=== PATIENT | female | born 1935 | race Caucasian/White ===

== ENCOUNTER 2020-08-25 13:30 | Inpatient (IN) | payer MEDICARE, SELFPAY ==
[2020-08-25 13:31] VITALS: BP 123/54; PULSE 78; RESP 20; TEMP 37.2; O2SAT 95; BMI 23.3
[2020-08-25 13:35] VITALS: BP 123/54; PULSE 78; RESP 20; TEMP 37.2; O2SAT 95
--- NOTE | 2020-08-25 14:27 | EKG12_ITS ---
Test Reason : GENERAL ILLNESS Blood Pressure : / mmHG Vent. Rate : 077 BPM Atrial Rate : 077 BPM P-R Int : 230 ms QRS Dur : 086 ms QT Int : 392 ms P-R-T Axes : 061 015 048 degrees QTc Int : 443 ms Sinus rhythm with 1st degree A-V block Septal infarct , age undetermined Abnormal ECG Confirmed by LEÓN LAWSON, MAGALIE ([id number]), film editor supervisor DIANE WINN ([id number]) on 08/26/2020 11:49:53 AM Referred By: URI Confirmed By:MAGALIE TRAORE MD
--- NOTE | 2020-08-25 14:28 | EDS_ITS ---
HPI History of Present Illness Chief Complaint: General Illness Informant: patient and family Narrative Narrative: Patient presents with generalized weakness. Her family has been urging her to come in for the last 1 to 2 months. Over the last 2 months she has lost the ability to ambulate. She states she is just too weak to get up and walk. There is no specific complaint other than a vaginal area mass. She does not have coughing or trouble breathing. Nothing is made her symptoms better or worse. She denies black or bloody stools. She came in today because she is just too weak to function at home at this point. Caring for her is gotten difficult. She has chronic stool and urine incontinence. Patient does complain of a vaginal area mass for the last 2 or 3 months. Occasionally it will have a small amount of bleeding but nothing significant. It does not really hurt. It just seems to be getting larger and larger. She has not had this evaluated. This is progressively worse. Nothing improves it. PFSH PFS Medical History (Updated 08/25/20 @ 16:[address] Joseph Ma MD) COPD (chronic obstructive pulmonary disease) Former tobacco use GERD (gastroesophageal reflux disease) HLD (hyperlipidemia) Hypertension Home Medications amlodipine 10 mg PO DAILY 06/24/15 [History Last Taken 06/24/15 09:00] esomeprazole magnesium [Nexium] 40 mg PO DAILY PRN PRN 06/24/15 [History Last Taken Unknown] labetalol 300 mg PO BID 06/24/15 [History Last Taken 06/24/15 09:00] Allergy/AdvReac Type Severity Reaction Status Date / Time atorvastatin calcium AdvReac aching Verified 08/25/20 13:36 [From Lipitor] erythromycin lactobionate AdvReac Nausea Verified 08/25/20 13:36 [From Erythrocin] rosuvastatin calcium AdvReac aching Verified 08/25/20 13:36 [From Crestor] Surgical History (Updated 08/25/20 @ 16:[address] Saritha Albrecht MD) S/P cholecystectomy S/P tonsillectomy and adenoidectomy Social History (Updated 08/25/20 @ 16:[address] Saritha Albrecht MD) household members: family Smoking Status: Former smoker how long ago did patient quit smoking: Patient quit 40 years ago, 1/2 ppd since teenager until quit. alcohol intake: never substance use type: does not use ROS ROS ED Constitutional Constitutional ED: Reports weight loss; Denies chills or fever(s) Eyes Eyes: Denies change in vision ENT ENT ED: Denies rhinorrhea or sore throat Cardiovascular Cardiovascular: Denies chest pain or palpitations Respiratory/Chest Respiratory/Chest: Denies cough, dyspnea or sputum Gastrointestinal Gastrointestinal: Denies abdominal pain, melena, nausea or vomiting Genitourinary Genitourinary ED: Reports dysuria, urinary frequency and other Details: Vaginal area mass slowly enlarging over the last 2 or 3 months. ; Denies hematuria Musculoskeletal Musculoskeletal: Denies back pain or myalgias Integumentary Reports other Details: Mass in vaginal area. ; Denies rash Neurologic Neurologic: Denies headache(s) Psychiatric Psychiatric: Denies anxiety or depression Endocrine Endocrinology: Denies polydipsia or polyuria EXAM Physical Exam Const Vital Signs: 08/25/20 13:31 08/25/20 13:35 08/25/20 13:38 Temperature 99.0 F 99.0 F Temperature Source Temporal Temporal Pulse Rate 78 78 Respiratory Rate 20 H 20 H Respiratory Effort Normal Non-Labored Blood Pressure 123/54 H 123/54 H Blood Pressure Mean 77 77 Pulse Ox 95 95 Oxygen Delivery Method Room Air Room Air Positive cachectic; Negative for unkempt General Appearance ED: cachectic and pallor; Negative for unkempt or diaphoretic Nutritional Appearance: cachectic HEENT Reports moist mucous membranes Negative for trauma or tenderness Eyes EOMs intact bilaterally General Eye ED: Yes other; Negative for pale conjunctiva Neck supple Chest Wall inspection of chest normal Resp normal respiratory effort and clear to auscultation bilaterally Cardio regular rate, regular rhythm and no murmurs GI normal to inspection, nondistended, normoactive bowel sounds and non-tender Palpation: soft Narrative: And has vulvar area mass. This is raw and slightly weeping. There is no significant local cellulitis. This does not appear to be an abscess. This is firm and somewhat hard. Back/Spine no CVA tenderness Extremity normal to inspection Neuro oriented x3 Sensorium / Orientation: alert Psych mental status grossly normal Appearance: Negative for unkempt Skin no rashes or lesions noted General Skin Exam: pallor MDM MDM MDM Narrative Medical decision making narrative: Patient's results show a very slight elevation of white count. Mild anemia. Mildly low sodium. Renal function is normal. LFTs show no marked abnormalities. CT scan is concerning for cancer with adenopathy. Case was discussed with Dr. Saritha Albrecht. She is contacting urology also. Patient will be admitted. She has significant generalized weakne ss that prevents her from functioning at home. She is not able to bear weight. She cannot care for herself. It is getting hard for the family to care for herself. Lab Data Attestation: I reviewed the patient's lab results. Labs: Laboratory Results - last 24 hr 08/25/20 08/25/20 13:40 13:40 WBC 13.0 H RBC 3.43 L Hgb 9.4 L Hct 29.8 L MCV 86.9 MCH 27.4 MCHC 31.5 L RDW Std Deviation 42.8 RDW Coeff of Trey 13.4 Plt Count 318 MPV 8.4 Immature Gran % (Auto) 0.600 Neut % (Auto) 89.9 H Lymph % (Auto) 3.[address] [place] % (Auto) 4.0 Eos % (Auto) 1.5 Baso % (Auto) 0.5 Absolute Neuts (auto) 11.7 H Absolute Lymphs (auto) 0.46 L Nucleated RBC % 0 Platelet Estimate ADEQUATE Hypochromasia 2+ Sodium 132 L Potassium 3.9 Chloride 99 Carbon Dioxide 29.0 Anion Gap 4 L BUN 14 Creatinine 0.98 Estim Creat Clear Calc 38.45 Est GFR (MDRD) Af Amer 70 Est GFR (MDRD) Non-Af 58 L BUN/Creatinine Ratio 14.3 Glucose 98 Calcium 9.7 Total Bilirubin 0.70 AST 10 L ALT 8 L Alkaline Phosphatase 90 Total Protein 4.9 L Albumin 1.9 L Globulin 3.0 Albumin/Globulin Ratio 0.6 L Radiography Diagnostic Testing: Radiology Impression Abdomen/Pelvis CT 08/25/20 14:32 IMPRESSION: A fungoid vulvar mass with evidence of necrotic metastatic adenopathy in the left pelvic sidewall and inguinal region. Rounded cystic lesion in the mesentery on the right side of the abdomen, likely a mesenteric cyst; however, a necrotic adenopathy cannot be entirely excluded though felt to be much less likely. Small bilateral layering pleural effusions. Electronically Signed: Vinod Marquez MD at 15:33 EDT Tel , Service support , Reviewed results Discharge Plan Dx/Rx/DC Orders Clinical Impression: Vulvar mass, Adult failure to thrive, Anemia Disposition Disposition: Acute Care [facility]
--- NOTE | 2020-08-25 14:32 | CT_ITS ---
STUDY: CT ABDOMEN AND PELVIS WITH CONTRAST REASON FOR EXAM: Female, 84 years old. Vulvar mass and generalized weakness RADIATION DOSAGE (If Supplied By Facility): CTDIvol = ( 7.33 ) mGy, DLP = ( 404.60 ) mGycm TECHNIQUE: Transaxial images were obtained from the dome of the diaphragm to the symphysis pubis without oral contrast. IV 100mL Isovue-370 was administered. Sagittal and coronal images were reconstructed. Individualized dose optimization techniques were used for this CT. COMPARISON: CT scan of the chest dated 07/19/2014 FINDINGS: Small layering pleural effusions bilaterally. Subsegmental compressive atelectasis in the bilateral lower lobes. Unremarkable liver, spleen, pancreas, and adrenals. Status post cholecystectomy with associated mild biliary dilatation. Bilateral renal cortical thinning. Small cortical hypodensities in the bilateral kidneys, likely simple cysts. Approximately 2.1 cm cystic/hypodense lesion in the right mid abdomen, image #58 axial series. Normal appendix. Bowel loops nonobstructed. Sections through the pelvis demonstrate no adnexal mass. Urinary bladder grossly unremarkable. Necrotic enlarged lymph nodes are seen along the left pelvic sidewall measuring up to 3.4 x 1.5 cm on image #74 axial series and in the left inguinal region measuring 5.3 x 4.1 cm image #91. A fungoid markedly heterogeneous and infiltrative vulvar mass is noted measuring up to 9.5 x 7 cm in axial plane. No lytic or sclerotic lesion in the regional skeleton. Multilevel lumbar spondylosis and dextroscoliosis. CT/Abdomen/Pelvis W IV Cont ONLY IMPRESSION: A fungoid vulvar mass with evidence of necrotic metastatic adenopathy in the left pelvic sidewall and inguinal region. Rounded cystic lesion in the mesentery on the right side of the abdomen, likely a mesenteric cyst; however, a necrotic adenopathy cannot be entirely excluded though felt to be much less likely. Small bilateral layering pleural effusions. Electronically Signed: Vinod Marquez MD at 15:33 EDT Tel , Service support ,
[2020-08-25 14:44] LABS: Absolute Lymphocyte Count 0.46 X10^3/uL (0.83-4.51); Absolute Neutrophil Count 11.7 X10^3/uL (2.0-7.7); Basophil# 0.07 X10^3/uL; Basophil% 0.5 % (0-1); Eosinophil# 0.19 X10^3/uL; Eosinophils% 1.5 % (0-5); Hematocrit 29.8 % (37-47); Hemoglobin 9.4 g/dL (12.0-15.0); Lymphocyte # 0.46 X10^3/ul (0.83-4.51); Lymphocyte % 3.5 % (19-41); Mean Corp Hgb Conc 31.5 g/dL (32-36); Mean Corpuscular Hgb 27.4 pg (27.0-32.0); Mean Corpuscular Volume 86.9 fL (81-99); Mean Platelet Vol. 8.4 fl (6.2-12.0); Monocyte# 0.52 X10^3/uL; NRBC Flagged by Analyzer 0 % (0-5); Neutrophil # 11.71 X10^3/uL (2.7-7.7); Neutrophil % 89.9 % (47-70); POSITIVE DIFFERENTIAL YES; Platelet Count 318 K/mm3 (150-450); RBC Distribution Width CV 13.4 % (11.6-14.6); RBC Distribution Width SD 42.8 fl (35.1-43.9); Red Blood Count 3.43 M/mm3 (4.2-5.4)
[2020-08-25 14:45] LABS: Differential Indicated SCAN CRITERIA MET
[2020-08-25 14:54] LABS: ALB/GLOB Ratio 0.6 RATIO (0.9-2.4); AST(SGOT) 10 U/L (15-37); Alanine Aminotransfer ALT/SGPT 8 U/L (13-56); Albumin, Serum 1.9 g/dL (3.2-5.0); Alkaline Phosphatase 90 U/L (45-117); Anion Gap 4 (5-15); BUN 14 mg/dL (7-18); BUN/Creat Ratio 14.3 RATIO (10-20); Calcium,Total 9.7 mg/dL (8.5-10.1); Chloride 99 mmol/L (98-107); Creatinine, Serum 0.98 mg/dL (0.55-1.02); EST Glomerular Filtration Rate 58 mL/min (>60); Est Glom Filt Rate - Afr Amer 70 mL/min (>60); Estimated Creatinine Clearance 38.45 ml/min; Glucose 98 mg/dL (74-106); Potassium 3.9 mmol/L (3.5-5.1); Protein, Total 4.9 g/dL (6.4-8.2); Sodium Level 132 mmol/L (136-145)
[2020-08-25 15:03] LABS: Hypochromasia 2+; Platelet Estimate ADEQUATE (ADEQ)
--- NOTE | 2020-08-25 15:57 | PCM.HP.STD ---
HPI - General General Date of Service: 08/25/20 Chief Complaint: Debility, Weakness, Vulvar mass HPI Narrative The patient is an 84 y/o F w/ PMHx: HTN, HLD, GERD, Chronic COPD w/ Former Tobacco use, Chronic anemia who presents to the [facility] ED on 08/25/20, currently residing with her daughter with history of significant functional decline over the last couple weeks with frequent falls, inability to care for self with reported foul-smelling reported wounds in the groin and vaginal region frequently refusing to be evaluated prompting daughter to bring patient to the ED for evaluation. Patient reports that the vulvar region mass has been growing for at least the last 6 months and she reports some burning with urination but still has the ability to urinate. She denies any abdominal pain despite the CT findings. Daughter notes that patient has been incontinent of both urine and feces. Patient has been very resistant to coming in and has not sought out any evaluation for her mass. Work-up in the ED included T 99, heart rate 78, BP 123/54, respiratory rate 20, 95% room air, CBC with WBC 13, hemoglobin 9.4, platelets 318 with left shift and lymphopenia, CMP with sodium 132, BUN/creatinine 14/0.98, AST/ALT 10/8, otherwise not marked appearing hepatic profile, CT abdomen and pelvis with a fungoid vulvar mass with evidence of necrotic metastatic adenopathy in the left pelvic sidewall and inguinal region with a rounded cystic lesion in the mesentery in the right side of the abdomen possibly mesenteric cyst however necrotic adenopathy cannot be entirely excluded although less likely, small bilateral pleural effusions. Of note on exam patient with no significant abdominal pain including right lower quadrant. Urinalysis requested per ED physician but is pending upon evaluation. [facility] Medical History (Updated 08/25/20 @ 16:[address] Joseph Ma MD) COPD (chronic obstructive pulmonary disease) Former tobacco use GERD (gastroesophageal reflux disease) HLD (hyperlipidemia) Hypertension Home Medications amlodipine 10 mg PO DAILY 06/24/15 [History Last Taken 06/24/15 09:00] esomeprazole magnesium [Nexium] 40 mg PO DAILY PRN PRN 06/24/15 [History Last Taken Unknown] labetalol 300 mg PO BID 06/24/15 [History Last Taken 06/24/15 09:00] Allergy/AdvReac Type Severity Reaction Status Date / Time atorvastatin calcium AdvReac aching Verified 08/25/20 13:36 [From Lipitor] erythromycin lactobionate AdvReac Nausea Verified 08/25/20 13:36 [From Erythrocin] rosuvastatin calcium AdvReac aching Verified 08/25/20 13:36 [From Crestor] Surgical History (Updated 08/25/20 @ 16:[address] Saritha Albrecht MD) S/P cholecystectomy S/P tonsillectomy and adenoidectomy Social History (Updated 08/25/20 @ 16:[address] Saritha Albrecht MD) household members: family Smoking Status: Former smoker how long ago did patient quit smoking: Patient quit 40 years ago, 1/2 ppd since teenager until quit. alcohol intake: never substance use type: does not use ROS ROS Narrative Admission Review of Systems: CONSTITUTIONAL: No weight loss, fever, chills, + weakness or fatigue. HEENT: Eyes: No visual loss, blurred vision, double vision or yellow sclerae. Ears, Nose, Throat: No hearing loss, sneezing, congestion, runny nose or sore throat. SKIN: No rash or itching, lesions, wounds. CARDIOVASCULAR: No chest pain, chest pressure or chest discomfort, palpitations, edema, orthopnea, syncopal events. RESPIRATORY: No shortness of breath, cough or sputum, wheezing, hemoptysis. GASTROINTESTINAL: No anorexia, nausea, vomiting or diarrhea, abdominal pain, melena, BRBPR. GENITOURINARY: + Dysuria, vulvar fungating mass, incontinence. NEUROLOGICAL: No headache, dizziness, syncope, paralysis, ataxia, numbness or tingling in the extremities, focal weakness, change in bowel or bladder control, seizure. MUSCULOSKELETAL: + muscle, back pain, joint pain or stiffness. HEMATOLOGIC: No anemia, bleeding or bruising. LYMPHATICS: No enlarged nodes. No history of splenectomy. PSYCHIATRIC: No history of depression or anxiety. ENDOCRINOLOGIC: No reports of sweating, cold or heat intolerance. No polyuria or polydipsia. ALLERGIES: + history of asthma, hives, eczema or rhinitis. Vital Signs Vital Signs Vital Signs: 08/25/20 13:31 08/25/20 13:35 08/25/20 13:38 Temperature 99.0 F 99.0 F Temperature Source Temporal Temporal Pulse Rate 78 78 Respiratory Rate 20 H 20 H Respiratory Effort Normal Non-Labored Blood Pressure 123/54 H 123/54 H Blood Pressure Mean 77 77 Pulse Ox 95 95 Oxygen Delivery Method Room Air Room Air Weight Weight: 140 lb Body Mass Index (BMI) 23.3 Physical Exam Narrative Physical Examination: General: Awake, alert, oriented x 3 and cooperative, seated upright in the ED bed in no apparent distress. Skin: Normal color, normal turgor, no icterus, no cyanosis except significant vulvar fungating foul-smelling mass. HEENT: AT/NC, EOMI, PERRLA, mildly dry MM, no carotid bruits or JVD noted. Lungs: Mildly diminished bases, moderate effort, no notable rales, ronchi or wheezing. Heart: Regular rate and rhythm; no gallop, rub audible. Abdomen: Soft, NTTP including right lower quadrant given CT findings, ND, distant normal BS, no HSM. : Significant beefy red fungating mass, Extremities: No cyanosis, clubbing, or edema. Neurological: Patient awake, alert, oriented as noted, cognitive function intact; pupils equally reactive to light and accommodation, cranial nerves II-XII grossly normal, moving all 4 extremities, no focal deficits, strength moderately to severely globally decreased. Psychiatric: Affect appears fatigued otherwise normal, no acute evidence of depressive or anxiety feelings. Results Lab / Micro Data Result Diagrams: 08/25/20 13:40 08/25/20 13:40 Labs: Laboratory Results - last 24 hr 08/25/20 13:40: WBC 13.0 H, RBC 3.43 L, Hgb 9.4 L, Hct 29.8 L, MCV 86.9, MCH 27.4, MCHC 31.5 L, RDW Std Deviation 42.8, RDW Coeff of Trey 13.4, Plt Count 318, MPV 8.4, Immature Gran % (Auto) 0.600, Neut % (Auto) 89.9 H, Lymph % (Auto) 3.5 L, [place] % (Auto) 4.0, Eos % (Auto) 1.5, Baso % (Auto) 0.5, Absolute Neuts (auto) 11.7 H, Absolute Lymphs (auto) 0.46 L, Nucleated RBC % 0, Platelet Estimate ADEQUATE, Hypochromasia 2+ 08/25/20 13:40: Sodium 132 L, Potassium 3.9, Chloride 99, Carbon Dioxide 29.0, Anion Gap 4 L, BUN 14, Creatinine 0.98, Estim Creat Clear Calc 38.45, Est GFR (MDRD) Af Amer 70, Est GFR (MDRD) Non-Af 58 L, BUN/Creatinine Ratio 14.3, Glucose 98, Calcium 9.7, Total Bilirubin 0.70, AST 10 L, ALT 8 L, Alkaline Phosphatase 90, Total Protein 4.9 L, Albumin 1.9 L, Globulin 3.0, Albumin/Globulin Ratio 0.6 L Radiology Impression Abdomen/Pelvis CT 08/25/20 14:32 IMPRESSION: A fungoid vulvar mass with evidence of necrotic metastatic adenopathy in the left pelvic sidewall and inguinal region. Rounded cystic lesion in the mesentery on the right side of the abdomen, likely a mesenteric cyst; however, a necrotic adenopathy cannot be entirely excluded though felt to be much less likely. Small bilateral layering pleural effusions. Electronically Signed: Vinod Mraquez MD at 15:33 EDT Tel , Service support , Assessment & Plan Assessment/Plan (1) Vulvar mass: (2) Adult failure to thrive: PLAN: The patient is an 84 y/o F w/ PMHx: HTN, HLD, GERD, Chronic COPD w/ Former Tobacco use, Chronic anemia who presents to the [facility] ED on 08/25/20, currently residing with her daughter with history of significant functional decline over the last couple weeks with frequent falls, inability to care for self with reported foul-smelling reported wounds in the groin and vaginal region frequently refusing to be evaluated prompting daughter to bring patient to the ED for evaluation. 1. 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 Will admit to DC, maintain on fall precautions, awaiting UA and would initiate abx therapy if appropriate, discussed case with poultry hatchery supervisor Dr. Nathan who will evaluate patient in AM and perform Bx, PT, OT, CM consultations for discharge planning. 2. Chronic COPD: Not on routine inhalers, former tobacco use, PRN albuterol, encourage HOB, IS. 3. Chronic normocytic anemia: Admission hemoglobin 9.4, previously noted 10-11, MCV 86.9, not on any chronic supplementation, iron panel, ferritin, vitamin B12 pending. 4. Hypertension: Continue home regimen including labetalol, amlodipine with hold parameters, PRN hydralazine. 5. Hyperlipidemia: Not on regimen, noted statin allergy, defer to outpatient. 6. Former tobacco use: Encourage continued tobacco cessation. 7. GERD: We will maintain on PPI. 8. DVT prophylaxis: SCDs, lovenox (cleared to continue chemoprophylaxis per gynecology given biopsy planned). 9. CODE status: Patient does not have healthcare care power of managing attorney nor living will set up. Encouraged discussion of this with her family and assistance with case management/social work if interested. Discussed CODE status at length including difference between FULL code, DNR-CCA and DNR-CC status. Following discussions about the differences in these status, requested DNR-CCA, no intubation status. Code status form filled out and placed on chart. Advanced Care Planning Face to Face Time: 16 minutes. Charges/Coding Visit Charges Inpatient E&M: 00987 Init Hosp L2 Procedures Hospitalists Procedures: 44197 Advncd Care Plan 30 Min
--- NOTE | 2020-08-25 16:22 | NURSING ---
309 DR BARILLAS GENERALIZED WEAKNESS, NEW CANCER
[2020-08-25 16:34] LABS: Magnesium 1.4 mg/dL (1.6-2.6); Phosphorus 2.1 mg/dL (2.5-4.9)
[2020-08-25 16:51] VITALS: BMI 20.7
[2020-08-25 17:05] VITALS: BP 112/55; PULSE 77; RESP 16; TEMP 36.7; O2SAT 96
[2020-08-25] MEDS: 0.9% Normal Saline 1,000 ML 100 ML IV (17:42)
[2020-08-25] MEDS: 0.9% Saline Lock 10 ML Syringe IV (17:43)
[2020-08-25 17:57] LABS: Procalcitonin 0.13 ng/mL (0.00-0.09)
[2020-08-25] MEDS: amLODIPine 10 MG Tablet PO (18:41)
[2020-08-25 22:05] VITALS: BP 95/41; PULSE 95; RESP 16; TEMP 36.5; O2SAT 95
--- NOTE | 2020-08-26 | IMM_PTH ---
PATIENT: TORSTEN SAEZ LOC: MS3 U#:[id number] AGE/SX: 84/F [place] [facility] [place]: Dr. Monica Gerardo MD : [id number] BED: 1 DIS: 08/27/2020 SPEC #: [id number] RECD: 08/27/20 12:49 STATUS: BRITTNI REQ #: [id number] TYRA: 08/26/20 00:[address]: Conchita Ibarra DEPT: IMMUNOHISTOCHEMISTRY RECD BY: Claudia Franco ENTERED: 08/27/20 12:50 SP TYPE: IMMUNO OTHR DR: MD Dr. Saritha Dueñas MD Dr. Patrick Furness, MD Tissues: Vulva, NOS Procedures: p16 (initial) PHYSICIAN & INSTITUTION [place] [id number] SPECIMEN INFORMATION: Tissue Source: Vulvar mass, punch biopsy Clinical Info: Vulvar mass Specimen Number: [id number] CPT code: 45286 METHODOLOGY: Deparaffinized sections of prefer/formalin-fixed tissue or PAP/DQ stained slides are incubated with monoclonal/polyclonal antibodies/oligonucleotide probes. Localization is made via biotin free immunoperoxidase method. Appropriate controls are performed and reacted as expected. Results on target cell population are indicated in the following table: RESULTS: ANTIBODY / CLONE RESULT P16 (E6H4) negative These tests were developed and their performance characteristics determined by [facility]. They may not have been cleared or approved by the U.S. Food and Drug Administration. The FDA has determined that such clearance or approval is not necessary. The above immunohistochemical/dualISH markers are ordered and reviewed by the Pathologist. 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 SJ:jimi 08/28/2020
[2020-08-26] MEDS: 0.9% Normal Saline 1,000 ML 100 ML IV ×3 (04:00→21:01)
[2020-08-26 04:05] VITALS: BP 107/42; PULSE 84; RESP 16; TEMP 37.5; O2SAT 93
[2020-08-26 05:36] LABS: Absolute Lymphocyte Count 0.66 X10^3/uL (0.83-4.51); Absolute Neutrophil Count 10.3 X10^3/uL (2.0-7.7); Basophil# 0.05 X10^3/uL; Basophil% 0.4 % (0-1); Eosinophil# 0.41 X10^3/uL; Eosinophils% 3.4 % (0-5); Hematocrit 27.1 % (37-47); Hemoglobin 8.6 g/dL (12.0-15.0); Lymphocyte # 0.66 X10^3/ul (0.83-4.51); Lymphocyte % 5.5 % (19-41); Mean Corp Hgb Conc 31.7 g/dL (32-36); Mean Corpuscular Hgb 27.7 pg (27.0-32.0); Mean Corpuscular Volume 87.4 fL (81-99); Mean Platelet Vol. 8.3 fl (6.2-12.0); Monocyte# 0.49 X10^3/uL; Monocyte% 4.1 % (0-10); NRBC Flagged by Analyzer 0 % (0-5); Neutrophil # 10.26 X10^3/uL (2.7-7.7); Neutrophil % 86.2 % (47-70); Platelet Count 304 K/mm3 (150-450); RBC Distribution Width CV 13.6 % (11.6-14.6); RBC Distribution Width SD 43.2 fl (35.1-43.9); White Blood Count 11.9 K/mm3 (4.4-11.0)
[2020-08-26 06:10] LABS: ALB/GLOB Ratio 0.6 RATIO (0.9-2.4); AST(SGOT) 11 U/L (15-37); Alanine Aminotransfer ALT/SGPT 9 U/L (13-56); Albumin, Serum 1.7 g/dL (3.2-5.0); Alkaline Phosphatase 87 U/L (45-117); Anion Gap 5 (5-15); BUN 14 mg/dL (7-18); BUN/Creat Ratio 14.8 RATIO (10-20); Calcium,Total 9.7 mg/dL (8.5-10.1); Chloride 103 mmol/L (98-107); Creatinine, Serum 0.94 mg/dL (0.55-1.02); EST Glomerular Filtration Rate 60 mL/min (>60); Est Glom Filt Rate - Afr Amer 73 mL/min (>60); Estimated Creatinine Clearance 38.47 ml/min; Ferritin 115 ng/mL (8-252); Globulin 2.9 g/dL (2.2-4.2); Glucose 86 mg/dL (74-106); Iron 21 ug/dL (50-170); Iron Binding Capacity,Total 184 ug/dL (250-450); PERCENT IRON SATURATION 11.4 % (15.0-55.0); Protein, Total 4.6 g/dL (6.4-8.2); Sodium Level 134 mmol/L (136-145)
[2020-08-26 07:22] VITALS: O2SAT 96
[2020-08-26 07:50] LABS: Vitamin B12 262 pg/mL (211-911)
--- NOTE | 2020-08-26 08:48 | NURSING ---
THIS NURSE ENTERED ROOM D/T CALL LIGHT BLINKING. WHEN ENTERED, DAUGHTER HAD BEEN STANDING BY BEDSIDE ASSISTING HER MOM W/HER FOOD, SOON THIS NURSE ENTERED, DAUGHTER SAT DOWN, OH HERE THEY ARE, SHES HAVING TROUBLE GETTING HER EGGS ON HER FORK. THIS NURSE SIMPLY PUT A CHUCKS ON PTS CHEST AND TOLD HER TO DO HER BEST. TOLD PT THAT SHE CURRENTLY HAD NO MEDS DUE, I HAD OTHER PTS TO ASSIST, ENJOY HER BREAKFAST AND I WOULD RETURN TO GET VS AND ASSESS HER.
--- NOTE | 2020-08-26 10:20 | PN.HOSP_ITS ---
Subjective Subjective Patient was seen and examined. Denied any pain. No acute events overnight. Discussed with - patient will need to be transferred to [facility] for gynecology evaluation OWEN Objective Data Objective Data Vital Signs: Vital Signs Temp Pulse Resp BP Pulse Ox 99.5 F H 84 16 107/42 L 93 08/26/20 04:05 08/26/20 04:05 08/26/20 04:05 08/26/20 04:05 08/26/20 04:05 Oxygen Delivery Method Room Air Weight: 56.8 kg Body Mass Index (BMI) 20.7 Intake & Output: Intake and Output for Last 24 Hours 08/24/20 08/25/20 08/26/20 23:59 23:59 23:59 Intake Total 120 / 120 1000 / 1000 Balance 120 / 120 1000 / 1000 Lab / Micro Data Result Diagrams: 08/26/20 05:16 08/26/20 05:16 Labs: Laboratory Results - last 24 hr 08/25/20 13:40: WBC 13.0 H, RBC 3.43 L, Hgb 9.4 L, Hct 29.8 L, MCV 86.9, MCH 27.4, MCHC 31.5 L, RDW Std Deviation 42.8, RDW Coeff of Trey 13.4, Plt Count 318, MPV 8.4, Immature Gran % (Auto) 0.600, Neut % (Auto) 89.9 H, Lymph % (Auto) 3.5 L, [place] % (Auto) 4.0, Eos % (Auto) 1.5, Baso % (Auto) 0.5, Absolute Neuts (auto) 11.7 H, Absolute Lymphs (auto) 0.46 L, Nucleated RBC % 0, Platelet Estimate A DEQUATE, Hypochromasia 2+ 08/25/20 13:40: Sodium 132 L, Potassium 3.9, Chloride 99, Carbon Dioxide 29.0, Anion Gap 4 L, BUN 14, Creatinine 0.98, Estim Creat Clear Calc 38.45, Est GFR (MDRD) Af Amer 70, Est GFR (MDRD) Non-Af 58 L, BUN/Creatinine Ratio 14.3, Glucose 98, Calcium 9.7, Total Bilirubin 0.70, AST 10 L, ALT 8 L, Alkaline Phosphatase 90, Total Protein 4.9 L, Albumin 1.9 L, Globulin 3.0, Albumi n/Globulin Ratio 0.6 L 08/25/20 13:40: Phosphorus 2.1 L, Magnesium 1.4 L 08/25/20 13:40: Procalcitonin 0.13 H 08/26/20 05:16: WBC 11.9 H, RBC 3.10 L, Hgb 8.6 L, Hct 27.1 L, MCV 87.4, MCH 27.7, MCHC 31.7 L, RDW Std Deviation 43.2, RDW Coeff of Trey 13.6, Plt Count 304, MPV 8.3, Immature Gran % (Auto) 0.400, Neut % (Auto) 86.2 H, Lymph % (Auto) 5.5 L, [place] % (Auto) 4.1, Eos % (Auto) 3.4, Baso % (Auto) 0.4, Absolute Neuts (auto) 10.3 H, Absolute Lymphs (auto) 0.66 L, Nucleated RBC % 0 08/26/20 05:16: Sodium 134 L, Potassium 4.0, Chloride 103, Carbon Dioxide 26.0, Anion Gap 5, BUN 14, Creatinine 0.94, Estim Creat Clear Calc 38.47, Est GFR (MDRD) Af Amer 73, Est GFR (MDRD) Non-Af 60, BUN/Creatinine Ratio 14.8, Glucose 86, Calcium 9.7, Iron 21 L, TIBC 184 L, Iron Saturation 11.4 L, Ferritin 115, Total Bilirubin 0.50, AST 11 L, ALT 9 L, Alkaline Phosphatase 87, Total Protein 4.6 L, Albumin 1.7 L, Globulin 2.9, Albumin/Globulin Ratio 0.6 L, Folate 6.10 08/26/20 05:16: Vitamin B12 262 Radiography Diagnostic Testing: Radiology Impression Abdomen/Pelvis CT 08/25/20 14:32 IMPRESSION: A fungoid vulvar mass with evidence of necrotic metastatic adenopathy in the left pelvic sidewall and inguinal region. Rounded cystic lesion in the mesentery on the right side of the abdomen, likely a mesenteric cyst; however, a necrotic adenopathy cannot be entirely excluded though felt to be much less likely. Small bilateral layering pleural effusions. Electronically Signed: Vinod Marquez MD at 15:33 EDT Tel , Service support , Physical Exam Narrative Physical exam: General: Alert, Oriented x3, Cooperative, No apparent distress, Well developed HEENT: Atraumatic Oral: Moist Mucosa Neck: Supple Lungs: Clear to auscultation Cardiovascular: HS I+II, regular, no murmurs Abdomen: Bowel Sounds Present, Soft, Non Tender, vulvar exam not done Extremities: No edema Assessment & Plan Assessment/Plan (1) Vulvar mass: (2) Adult failure to thrive: (3) Anemia: QUALIFIERS: Anemia type: unspecified type Qualified Code(s): D64.9 - Anemia, unspecified (4) Hypomagnesemia: PLAN: 1. Debility, recurrent falls, likely multifactorial, related to fungating vulvar mass, electrolyte imbalances PT/OT to evaluate and treat 2. Vulvar mass, fungoid in nature with evidence of metastatic adenopathy in left pelvic sidewall and inguinal region with a rounded cystic lesion in the mesentery in the right side of the abdomen Discussed with gynecology; will transfer for gynecology evaluation in [facility] 3. Hypomagnesemia,phosphorus - phosphorus today is normal, Mg is 1.4, will replace, recheck in am 4. Rest of chronic diseases are stable Charges/Coding Visit Charges Inpatient E&M: 51983 Subs Hosp L2
--- NOTE | 2020-08-26 10:27 | CASEMGMT ---
DEEPA PAULINO Assessment: Face to Face with pt for initial transition planning/care coordination assessment. DEEPA PAULINO introduced self and role at [facility], pt voices understanding and consents to assessment. Pt is A/O x4 and answers all questions appropriately at this time. Pt sitting up in chair with two dtrs at bedside. Care providers, pharmacy, and demographics verified/updated. Admitting Dx: FTT, vulvar mass PCP: Furness Specialists: Pt denies having any specialists. Preferred Pharmacy: [facility] Insurance: [facility] Prescription Benefit: yes LW/HPOA: Pt denies having a LW/DPOA. LNOK: Stephania Manavjuan c, dtr; Arianne Weber, dtr Living Arrangements: Pt lives with dtr Stephania in a mobile home with 5 steps to enter with rail on both sides. Pt states she is I in dressing and she sponge bathes with wipes. Pt states she is unable to get into the tub due to high step in. Transportation: Pt does not drive. Pt dtr Stephania transports her to medical appts. Pt denies concerns with transportation. DME/HHC/SNF: Pt has a cane and walker at home. Pt is currently using the walker. Pt has had previous HHC but is unsure who it was through. Pt was at [facility] prior and then had home therapy after dc. Pt dtr Stephania states pt has fallen three times in the last 2 wks. She is alone 5 days a week while her dtr works. Dtr Arianne states pt is nonambulatory currently and feels pt cannot return home at this time. Pt states she agrees with this and she is willing to have s/t therapy. She states she was pleased with [facility] but would like a list of other options. Patient and dtrs were provided a list of [facility] providers including quality and resource use data and consistent with the patient?s preferred geographic region, medical needs, and insurance network. The patient?s preferred provider [facility]. Notified Kati DORAN. Pt and dtrs state no further concerns/needs and thank CM. CM to follow. Advised pt to ask CM if any further question/concerns/needs arise, voices understanding. Pt Goal: S/T therapy at [facility] Plan: S/T therapy at [facility]
[2020-08-26 10:37] VITALS: BP 106/50; PULSE 93; RESP 16; TEMP 36.8; O2SAT 92
[2020-08-26] MEDS: Pantoprazole Sodium 40 MG Tablet PO (10:49)
[2020-08-26 10:57] LABS: Magnesium 1.4 mg/dL (1.6-2.6); Phosphorus 2.6 mg/dL (2.5-4.9)
--- NOTE | 2020-08-26 11:48 | CASEMGMT ---
Addendum entered by Yari Fatima 08/26/20 14:33: Pt is being transferred out. ESPINOZA placed a call to Leonela in TCU and left message and updated her. Original Note: Social Work Note SW received referral for SNF placement and preference is [facility]. ESPINOZA placed a call to Leonela with TCU and provided referral. Leonela states as long as pt is not on Chemo/Radiation after consult with OBGYN, pt is able to admit to [facility]. SW informed Leonela will follow, but at this time, there is no plan for chemo/radiation. Plan: [facility] Yari Fatima [employer] FOLDER, DIAPER FOLDER
--- NOTE | 2020-08-26 12:45 | VUL_PTH ---
PATIENT: TORSTEN SAEZ LOC: MS3 U#:[id number] AGE/SX: 84/F ROOM: [facility] RE08/25/[address]: Dr. Monica Gerardo MD : [id number] BED: 1 DIS: 08/27/2020 SPEC #: [id number] RECD: 08/26/20 13:36 STATUS: BRITTNI REDamir #: [id number] TYRA: 08/26/20 12:[address]: Conchita Ibarra DEPT: SURGICAL PATHOLOGY RECD BY: Nelly Martinez ENTERED: 08/26/20 13:36 SP TYPE: VULVA BX OTHR DR: MD Dr. Saritha Dueñas MD Dr. Patrick Furness, MD Dr. 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 See comment. MARIKA:jimi 08/27/2020 COMMENT Immunohistochemistry ([id number]) for surrogate HPV marker (p16) will be performed and results will be reported separately. Case has been reviewed in consultation with Dr. Dotson who concurs with the above diagnosis. IDC:AM MICROSCOPIC DESCRIPTION Slides are reviewed. GROSS DESCRIPTION Received in fixative is one container labeled with the patient's name and designated vulva biopsy. The specimen consists of a punch biopsy of resendiz-white skin measuring 0.2 cm in diameter and 0.2 cm in length. The entire specimen is submitted in one cassette. / MARIKA:jimi 08/26/20 TC:0 CPT: 79203
[2020-08-26 13:01] LABS: Pathology Skin Biopsy SEE PATHOLOGY REPORT
[2020-08-26] MEDS: FERRIC SUBSULFATE 8 GM SOLN TOPICAL (13:41)
[2020-08-26] MEDS: Lidocaine 1% /Epi 1:100 (20ml) 20 ML Vial INFILT (13:41)
[2020-08-26] MEDS: Enoxaparin 40 MG/0.4 ML Syringe SC (14:43)
[2020-08-26] MEDS: Acetaminophen 325 MG Tablet 650 MG PO (14:50)
[2020-08-26] MEDS: Magnesium Sulfate 4gm/100mL 4 GM/100 ML IV.SOLN. IV (14:51)
--- NOTE | 2020-08-26 15:10 | EX.NTREPO ---
Medical Nutrition Therapy - History Nutrition Services has been consulted to:: Manage nutrient details of diet order Current diet/nutrition support order:: Cardiac diet. 120ml ensure enlive 4 times per day with mepass - Anthropometric Measurements Height:: 5 ft 4 in Weight:: 56.8 kg Body Mass Index (BMI):: 21.4 - Relevant Labs Relevant Labs:: WBC 11.9 K/mm3 (4.4-11.0) H 08/26/20 05:16 RBC 3.10 M/mm3 (4.2-5.4) L 08/26/20 05:16 Hgb 8.6 g/dL (12.0-15.0) L 08/26/20 05:16 Hct 27.1 % (37-47) L 08/26/20 05:16 MCHC 31.7 g/dL (32-36) L 08/26/20 05:16 Neut % (Auto) 86.2 % (47-70) H 08/26/20 05:16 Lymph % (Auto) 5.5 % (19-41) L 08/26/20 05:16 Absolute Neuts (auto) 10.3 X10^3/uL (2.0-7.7) H 08/26/20 05:16 Absolute Lymphs (auto) 0.66 X10^3/uL (0.83-4.51) L 08/26/20 05:16 Sodium 134 mmol/L (136-145) L 08/26/20 05:16 Anion Gap 4 (5-15) L 08/25/20 13:40 Est GFR (MDRD) Non-Af 58 mL/min (>60) L 08/25/20 13:40 Phosphorus 2.1 mg/dL (2.5-4.9) L 08/25/20 13:40 Magnesium 1.4 mg/dL (1.6-2.6) L 08/26/20 05:16 Iron 21 ug/dL (50-170) L 08/26/20 05:16 TIBC 184 ug/dL (250-450) L 08/26/20 05:16 Iron Saturation 11.4 % (15.0-55.0) L 08/26/20 05:16 AST 11 U/L (15-37) L 08/26/20 05:16 ALT 9 U/L (13-56) L 08/26/20 05:16 Total Protein 4.6 g/dL (6.4-8.2) L 08/26/20 05:16 Albumin 1.7 g/dL (3.2-5.0) L 08/26/20 05:16 Albumin/Globulin Ratio 0.6 RATIO (0.9-2.4) L 08/26/20 05:16 Procalcitonin 0.13 ng/mL (0.00-0.09) H 08/25/20 13:40 - Assessment Food and Nutrient Intake: Pt and daughters report decreased appetite and wt loss over the past 12 months; UBW~145 lbs & calculated~14% wt loss. Pt taking less than 50% at meals and agreeable to ensure enlive w/ medpass--will continue as ordered and liberalize diet from cardiac to Regular to help optimize intake. Pt denies any difficulty chewing and swallowing. - Nutrition Diagnosis: Clinical Problem Acute Disease or Injury Related Malnutrition Clinical Problem - Etiology: Moderate malnutrition in the context of acute on chronic illness related to likely metastatic disease/decreased appetite Clinical Problem - Signs/Symptoms: as evidenced by 14% wt loss x past 12 months and PO meeting less than 50% estimated nutrition needs x over 1 year. Status: Active Problem - Protein Calorie Malnutrition Evidence of Malnutrition Exists: Yes Moderate Protein Calorie Malnutrition: Acute Illness/Injury - Nutrition Intervention Nutrition Prescription: Estimated nutrition needs~1523-7388 kcal (28 kcal/Kg) and ~70-80 gm pro (1.2-1.4 gm pro/Kg). Estimated fluid needs~1700-1800ml/day (30 ml/Kg). - Food / Nutrient Delivery Interventions Summary of nutrition intervention:: Nutrition education provided, Adjust diet order, Provide oral nutrition supplement Nutrition support ordered as / adjusted to:: Will liberalize diet to Regular. Will continue ensure enlive w/ medpass as ordered to provide additional 700 calories and 40 gm protein if consumed. Will add magic cup w/ lunch to provide additional 290 calories and 9 gm protein if consumed. Nutrition education provided?: Yes - MNT Monitoring Active Nutrition Patient: Yes Nutrition Status: Requires Follow Up 3-5 Days
[2020-08-26 15:11] VITALS: BMI 21.4
--- NOTE | 2020-08-26 16:59 | CON.PCM.OB_ITS ---
Assessment & Plan (1) Vulvar mass: COMMENT: Biopsy done. 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 Recommend transfer to tertiary care facility for management by gynecology oncology. Dr. Liborio Whalen accepting transfer. PLAN: appreciate involvement, available peripherally as needed. pending transfer to tertiary care facility HPI Consult Data Date of Consult: 08/26/20 HPI Narrative HPI Narrative: TORSTEN SAEZ, is a 84 F who presents due to fatigue, poor appet ite, difficulty ambulating and then upon evaluation and admission patient was found to have a large vulvar mass. Patient states it has been increasing in size over the last year but she was to uncomfortable to seek treatment and evaluation due to Covid pandemic. She states sometimes there is discharge and it bleeds. She has dysuria but is still able to urinate. [facility] Medical History (Updated 08/26/20 @ 17:[address] Conchita Ibarra MD) COPD (chronic obstructive pulmonary disease) Former tobacco use GERD (gastroesophageal reflux disease) HLD (hyperlipidemia) Hypertension Home Medications amlodipine 10 mg PO DAILY@1700 06/24/15 [History Last Taken 08/24/20 17:00] esomeprazole magnesium [Nexium] 40 mg PO DAILY PRN PRN 06/24/15 [History Last Taken Unknown] labetalol 300 mg PO BID 06/24/15 [History Last Taken 08/25/20 09:00] Allergy/AdvReac Type Severity Reaction Status Date / Time atorvastatin calcium AdvReac Nausea Verified 08/25/20 17:11 [From Lipitor] erythromycin lactobionate AdvReac Nausea Verified 08/25/20 13:36 [From Erythrocin] rosuvastatin calcium AdvReac Nausea Verified 08/25/20 17:11 [From Crestor] Surgical History S/P cholecystectomy S/P tonsillectomy and adenoidectomy Social History (Updated 08/25/20 @ 16:[address] Saritha Albrecht MD) household members: family Smoking Status: Former smoker how long ago did patient quit smoking: Patient quit 40 years ago, 1/2 ppd since teenager until quit. alcohol intake: never substance use type: does not use Vital Signs Vital Signs Vital Signs: 08/25/20 17:05 08/25/20 22:00 08/25/20 22:05 Temperature 98.0 F 97.7 F L Temperature Source Oral Oral Pulse Rate 77 95 Pulse Strength Normal (2+) Respiratory Rate 16 16 Respiratory Effort Respiratory Depth Respiratory Pattern Blood Pressure 112/55 L 95/41 L Blood Pressure Mean 74 59 Blood Pressure Source Monitor Monitor Blood Pressure Position Semi-Fowlers Semi-Fowlers Blood Pressure Location Right Arm Right Arm Pulse Ox 96 95 Oxygen Delivery Method Room Air Room Air 08/25/20 23:00 08/26/20 04:05 08/26/20 07:22 Temperature 99.5 F H Temperature Source Temporal Pulse Rate 84 Pulse Strength Respiratory Rate 16 Respiratory Effort Normal Non-Labored Respiratory Depth Normal Respiratory Pattern Normal Blood Pressure 107/42 L Blood Pressure Mean 63 Blood Pressure Source Monitor Blood Pressure Position Semi-Fowlers Blood Pressure Location Right Arm Pulse Ox 93 96 Oxygen Delivery Method Room Air Room Air Room Air 08/26/20 08:52 08/26/20 10:37 Temperature 98.2 F Temperature Source Oral Pulse Rate 93 Pulse Strength Normal (2+) Respiratory Rate 16 Respiratory Effort Respiratory Depth Respiratory Pattern Blood Pressure 106/50 L Blood Pressure Mean 68 Blood Pressure Source Monitor Blood Pressure Position Sitting Blood Pressure Location Right Arm Pulse Ox 92 Oxygen Delivery Method Room Air Weight Weight: 125 lb 3.561 oz Body Mass Index (BMI) 21.4 ROS Constitutional Constitutional: Reports systems reviewed and no addt'l complaints, except as documented, change in weight, fatigue, malaise and weakness; Denies as per HPI, fever(s) or other Eyes Eyes: Reports systems reviewed and no addt'l complaints, except as documented; Denies as per HPI, change in vision or other ENT HEENT: Reports as per HPI and dizziness; Denies dry mouth, headache(s), loss taste/smell, nasal congestion, nasal discharge, neck pain, sore throat or other Respiratory/Chest Respiratory/Chest: Reports systems reviewed and no addt'l complaints, except as documented Gastrointestinal Gastrointestinal: Reports systems reviewed and no addt'l complaints, except as documented and nausea; Denies vomiting Musculoskeletal Musculoskeletal: Reports systems reviewed and no addt'l complaints, except as documented; Denies back pain or joint pain Neurologic Neurologic: Reports systems reviewed and no addt'l complaints, except as documented Psychiatric Psychiatric: Reports systems reviewed and no addt'l complaints, except as documented Endocrine Endocrinology: Reports systems reviewed and no addt'l complaints, except as documented Hematologic/Lymphatic Hematologic/Lymphatic: Reports systems reviewed and no addt'l complaints, except as documented Physical Exam Const alert, oriented x3 and no apparent distress HEENT normocephalic Head and Scalp: atraumatic Eyes EOMs intact bilaterally and conjunctivae normal Neck full ROM, no lymphadenopathy, supple and thyroid normal General: trachea midline Lymph Lymphatic: no lymphadenopathy noted Resp normal respiratory effort, no retractions, no use of accessory muscles and clear to auscultation bilaterally Cardio regular rhythm GI normal to inspection, nondistended, normoactive bowel sounds, soft to palpation, non-distended and no masses Inspection: Negative for abdominal distention Palpation: tender Narrative: Large fungating 10 x 12 cm mass encompassing bilateral mons pubis and bilateral labia down to the level of the introitus. Necrotic tissue seen left groin adenopathy, tender. Anterior part of mass prepped with Betadine and injected with 1% lidocaine with epinephrine and 3 mm Stephen punch biopsy removed and Monsel's paste used for hemostasis. Pathology sent to analysis. Back/Spine no CVA tenderness Extremity normal to inspection Skin Skin Narrative: See Neuro moves all extremities Neuro Narrative: Reduced strength in lower extremities Motor Exam: clonus absent Psych mental status grossly normal Lab / Micro Data Result Diagrams: 08/26/20 05:16 08/26/20 05:16 Labs: Laboratory Results - last 24 hr 08/25/20 13:40: Procalcitonin 0.13 H 08/26/20 05:16: WBC 11.9 H, RBC 3.10 L, Hgb 8.6 L, Hct 27.1 L, MCV 87.4, MCH 27.7, MCHC 31.7 L, RDW Std Deviation 43.2, RDW Coeff of Trey 13.6, Plt Count 304, MPV 8.3, Immature Gran % (Auto) 0.400, Neut % (Auto) 86.2 H, Lymph % (Auto) 5.5 L, [place] % (Auto) 4.1, Eos % (Auto) 3.4, Baso % (Auto) 0.4, Absolute Neuts (auto) 10.3 H, Absolute Lymphs (auto) 0.66 L, Nucleated RBC % 0 08/26/20 05:16: Sodium 134 L, Potassium 4.0, Chloride 103, Carbon Dioxide 26.0, Anion Gap 5, BUN 14, Creatinine 0.94, Estim Creat Clear Calc 38.47, Est GFR (MDRD) Af Amer 73, Est GFR (MDRD) Non-Af 60, BUN/Creatinine Ratio 14.8, Glucose 86, Calcium 9.7, Iron 21 L, TIBC 184 L, Iron Saturation 11.4 L, Ferritin 115, Total Bilirubin 0.50, AST 11 L, ALT 9 L, Alkaline Phosphatase 87, Total Protein 4.6 L, Albumin 1.7 L, Globulin 2.9, Albumin/Globulin Ratio 0.6 L, Folate 6.10 08/26/20 05:16: Vitamin B12 262 08/26/20 05:16: Phosphorus 2.6, Magnesium 1.4 L Charges/Coding Multi Select Codes Visit Charges Office Visit/Consults: 26968 OV L3 New Integumentary Integumentary CPT Codes: 94222 Punch bx skin single lesion
[2020-08-26 18:00] VITALS: BP 107/51; PULSE 89; RESP 16; TEMP 36.6; O2SAT 95
[2020-08-26 21:03] VITALS: BP 100/47; PULSE 87; RESP 18; TEMP 36.6; O2SAT 97
[2020-08-26] MEDS: Menthol/Lanolin/Calamine/Znox 113 GM Tube 1 APPLIC TOPICAL (21:15)
[2020-08-27 03:20] VITALS: BP 123/59; PULSE 91; RESP 16; TEMP 36.8; O2SAT 98
[2020-08-27 03:29] VITALS: O2SAT 98
[2020-08-27 05:29] LABS: Absolute Lymphocyte Count 0.56 X10^3/uL (0.83-4.51); Absolute Neutrophil Count 9.2 X10^3/uL (2.0-7.7); Basophil# 0.09 X10^3/uL; Basophil% 0.8 % (0-1); Eosinophil# 0.61 X10^3/uL; Eosinophils% 5.5 % (0-5); Hematocrit 28.5 % (37-47); Hemoglobin 8.9 g/dL (12.0-15.0); Lymphocyte # 0.56 X10^3/ul (0.83-4.51); Lymphocyte % 5.1 % (19-41); Mean Corp Hgb Conc 31.2 g/dL (32-36); Mean Corpuscular Hgb 27.7 pg (27.0-32.0); Mean Corpuscular Volume 88.8 fL (81-99); Monocyte# 0.54 X10^3/uL; Monocyte% 4.9 % (0-10); NRBC Flagged by Analyzer 0 % (0-5); Neutrophil # 9.18 X10^3/uL (2.7-7.7); Neutrophil % 83.4 % (47-70); POSITIVE DIFFERENTIAL YES; Platelet Count 287 K/mm3 (150-450); RBC Distribution Width CV 13.9 % (11.6-14.6); RBC Distribution Width SD 44.9 fl (35.1-43.9); Red Blood Count 3.21 M/mm3 (4.2-5.4)
[2020-08-27] MEDS: Menthol/Lanolin/Calamine/Znox 113 GM Tube 1 APPLIC TOPICAL (05:37)
[2020-08-27 06:01] LABS: Differential Indicated SCAN CRITERIA MET
[2020-08-27 06:18] LABS: ALB/GLOB Ratio 0.6 RATIO (0.9-2.4); AST(SGOT) 8 U/L (15-37); Alanine Aminotransfer ALT/SGPT 9 U/L (13-56); Albumin, Serum 1.6 g/dL (3.2-5.0); Alkaline Phosphatase 82 U/L (45-117); Anion Gap 6 (5-15); BUN 13 mg/dL (7-18); BUN/Creat Ratio 16.7 RATIO (10-20); Calcium,Total 8.8 mg/dL (8.5-10.1); Chloride 105 mmol/L (98-107); Creatinine, Serum 0.78 mg/dL (0.55-1.02); EST Glomerular Filtration Rate 75 mL/min (>60); Est Glom Filt Rate - Afr Amer 91 mL/min (>60); Estimated Creatinine Clearance 36.16 ml/min; Globulin 2.9 g/dL (2.2-4.2); Glucose 90 mg/dL (74-106); Magnesium 2.3 mg/dL (1.6-2.6); Protein, Total 4.5 g/dL (6.4-8.2); Sodium Level 136 mmol/L (136-145)
[2020-08-27 06:30] LABS: Differential Comment SCANNED
[2020-08-27 07:43] VITALS: O2SAT 95
[2020-08-27 08:41] VITALS: BP 117/49; PULSE 100; RESP 16; TEMP 36.9; O2SAT 100
[2020-08-27] MEDS: Enoxaparin 40 MG/0.4 ML Syringe SC (08:44)
[2020-08-27] MEDS: Pantoprazole Sodium 40 MG Tablet PO (08:46)
[2020-08-27 10:14] VITALS: O2SAT 92
--- NOTE | 2020-08-27 10:17 | CASEMGMT ---
Social Work Note Pt is now not being transferred. Plan is for pt to admit to TCU and then from TCU go home with Hospice services. ESPINOZA placed a call to Leonela in TCU and left message regarding referral. Leonela called this worker back, states TCU is able to accept pt today. ESPINOZA placed a call to Taylor with [facility]. [facility] prefers that once pt is at TCU and closer to returning home, to have SW on TCU call [facility] to arrange Hospice services at home. SW in to speak with pt. Pt's daughters present in room. SW updated pt and pt's daughters that TCU is able to accept pt today. Hospice will be referred once pt is on TCU and closer to being discharged home. Pt and pt's daughter's state understanding. Pt has not had COVID vaccinations, pt and pt's daughters aware of visitation rules for non vaccinated pt's on TCU. Plan: TCU today Yari Fatima [employer]EM[employer], OUTCOMES MANAGER
--- NOTE | 2020-08-27 10:21 | PN.OBGYN_ITS ---
Subjective Subjective Patient comfortable no chest pain shortness of breath still feels some weakness and fatigue but overall doing well. Declining transfer to tertiary care facility does not want to do surgery or radiation for treatment for vulvar mass at this time. Objective Data Objective Data Vital Signs: Vital Signs Temp Pulse Resp BP Pulse Ox 98.4 F 100 16 117/49 L 100 08/27/20 08:41 08/27/20 08:41 08/27/20 08:41 08/27/20 08:41 08/27/20 08:41 Oxygen Delivery Method Room Air Weight: 130 lb Body Mass Index (BMI) 21.4 Intake & Output: Intake and Output for Last 24 Hours 08/25/20 08/26/20 08/27/20 23:59 23:59 23:59 Intake Total 120 / 120 3745.58 / 3745.58 1050 / 1050 Balance 120 / 120 3745.58 / 3745.58 1050 / 1050 Lab / Micro Data Result Diagrams: 08/27/20 05:25 08/27/20 05:25 Labs: Laboratory Results - last 24 hr 08/26/20 05:16: Phosphorus 2.6, Magnesium 1.4 L 08/27/20 05:25: WBC 11.0, RBC 3.21 L, Hgb 8.9 L, Hct 28.5 L, MCV 88.8, MCH 27.7, MCHC 31.2 L, RDW Std Deviation 44.9 H, RDW Coeff of Trey 13.9, Plt Count 287, MPV 8.0, Immature Gran % (Auto) 0.300, Neut % (Auto) 83.4 H, Lymph % (Auto) 5.1 L, [place] % (Auto) 4.9, Eos % (Auto) 5.5 H, Baso % (Auto) 0.8, Absolute Neuts (auto) 9.2 H, Absolute Lymphs (auto) 0.56 L, Nucleated RBC % 0, Differential Comment SCANNED 08/27/20 05:25: Sodium 136, Potassium 4.0, Chloride 105, Carbon Dioxide 25.0, Anion Gap 6, BUN 13, Creatinine 0.78, Estim Creat Clear Calc 36.16, Est GFR ( RD) Af Amer 91, Est GFR (MDRD) Non-Af 75, BUN/Creatinine Ratio 16.7, Glucose 90, Calcium 8.8, Magnesium 2.3, Total Bilirubin 0.30, AST 8 L, ALT 9 L, Alkaline Phosphatase 82, Total Protein 4.5 L, Albumin 1.6 L, Globulin 2.9, Albumin/Globulin Ratio 0.6 L ROS Constitutional Constitutional: Reports as per HPI Respiratory/Chest Respiratory/Chest: Reports systems reviewed and no addt'l complaints, except as documented Gastrointestinal Gastrointestinal: Reports systems reviewed and no addt'l complaints, except as documented Physical Exam Const alert, oriented x3 and no apparent distress HEENT normocephalic Head and Scalp: atraumatic Neck full ROM Chest inspection of chest normal Assessment & Plan (1) Vulvar mass: COMMENT: Biopsy done. 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 Patient declined tertiary care facility transfer, encouraged patient to follow-up as outpatient if desires management. Also discussed hospice care but would need evaluation by Dr. Koby sousa. PLAN: Counseling options provided to patient and she is declining transfer of care to tertiary care facility and treatment for vulvar mass at this time. Encouraged outpatient follow-up. Await biopsy results. Charges/Coding Visit Charges Inpatient E&M: 45183 Subs Hosp L2
--- NOTE | 2020-08-27 10:22 | TREXTCAR_ITS ---
Diet 08/26/20 11:25 Diet: Regular - General Food consistency:: Regular Liquid Consistency:: Regular/Thin Type of Dietary Supplement:: Magic Cup Dessert Is pt able to select menu?: Yes Diet Comments: magic cup w/ lunch Routine Orders/Code Status Routine Lab Work: CBC (within 3 days) and BMP (within 3 days) Wound(s) vulva: Wound Type: mass Coccyx: Wound Type: Pressure Injury Therapies Weight Bearing: Weight bearing as tolerated Extremity Affected:: Bilateral Lower Physical Therapy: Eval and Treat Occupational Therapy: Eval and Treat Problem/Diagnosis (1) Vulvar mass: Status: Acute Comment: Biopsy done. 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 Patient declined tertiary care facility transfer, encouraged patient to follow-up as outpatient if desires management. Also discussed hospice care but would need evaluation by Dr. Koby sousa. Allergies/Procedures Done in Hospital Allergies atorvastatin calcium [From Lipitor] Adverse Reaction (Verified 08/25/20 17:11) Nausea erythromycin lactobionate [From Erythrocin] Adverse Reaction (Verified 08/25/20 13:36) Nausea rosuvastatin calcium [From Crestor] Adverse Reaction (Verified 08/25/20 17:11) Nausea Procedures: None Type of Care/Length of Stay Estimated LOS: Convalescent Care Less Than 30 days Type of Care Needed: Skilled Rehab Potential: Fair Prognosis: Fair Additional Orders/Day of Discharge Day of Discharge: 08/27/20 Dietary and Speech Recommendations Dietitian Recommendations/Changes: Will liberalize diet to Regular. Will continue ensure enlive w/ medpass as ordered to provide additional 700 calories and 40 gm protein if consumed. Will add magic cup w/ lunch to provide additional 290 calories and 9 gm protein if consumed. Discharge Plan Admission Admit Date/Time: 08/25/20 16:06 Primary Reason for Your Visit: Debility, vulvar masses Attending Provider: Monica Gerardo Primary Care Provider: Tavon López Consulting Providers: Conchita Ibarra Discharge Orders/Prescriptions Prescriptions: New Ensure Enlive 0.08 gram-1.5 kcal/mL Liquid 120 ml PO 4X/DAY Qty: 0 RF: 0 Calmoseptine 0.44-20.6 % Ointment 1 applic topical TID Qty: 0 RF: 0 Continued labetalol 200 MG tablet 300 mg PO BID RF: 0 amlodipine 5 MG tablet 10 mg PO DAILY@1700 RF: 0 esomeprazole magnesium [Nexium] 40 MG capsule 40 mg PO DAILY PRN PRN (Reason: stomach) RF: 0 Referrals / Follow Up: Tavon López MD [Primary Care Provider] - Within 2 Weeks Disposition Disposition (needs filled in before D/C Order can be placed): Senior Living Facility
--- NOTE | 2020-08-27 10:38 | PCM.DC.SUM ---
Providers Date of Admission: 08/25/20 Date of Discharge: 08/27/20 Primary Care Physician: Dr. Tavon López MD Consultations 08/25/20 16:24 Consult: BODY STYLIST Routine Consulting Provider: Conchita Ibarra Reason for Consult: Vulvar fungating mass EMERGENT Consult: No MD Notified: Yes Date Notified: 08/25/20 Time Notified: 16:24 Method of Notification: called Reason For Visit: FTT ADULT, VULVAR MASS Diagnosis Discharge Diagnosis (1) Vulvar mass: Status: Chronic Code(s): N90.89 - Other specified noninflammatory disorders of vulva and perineum (2) Hypomagnesemia: Status: Resolved Code(s): E83.42 - Hypomagnesemia (3) Anemia: Status: Chronic Code(s): D64.9 - Anemia, unspecified Qualifiers: Anemia type: unspecified type Qualified Code(s): D64.9 - Anemia, unspecified (4) Adult failure to thrive: Status: Chronic Code(s): R62.7 - Adult failure to thrive (5) HTN (hypertension): Status: Chronic Code(s): I10 - Essential (primary) hypertension Medications at Discharge Home Medications amlodipine 10 mg PO DAILY@1700 06/24/15 esomeprazole magnesium [Nexium] 40 mg PO DAILY PRN PRN 06/24/15 labetalol 300 mg PO BID 06/24/15 food supplemt, lactose-reduced [Ensure Enlive] 120 ml PO 4X/DAY 08/27/20 menthol-zinc oxide [Calmoseptine] 1 applic TOPICAL TID 08/27/20 Hospital Course Operations None Procedures None Summary of Care Provided Minutes Spent on Discharge: 45 Hospital Course: 84-year-old female with multiple comorbidities who presented with progressive decline and falls. She has been able to care for self and has foul-smelling wounds from the groin and vaginal region. Patient had refused previous evaluation. She admitted to having the vulvar mass pain for more than 6 months. Physical exam was significant for vulvar fungal mass suggestive of vulval carcinoma. Patient was seen by gynecology and recommended to be transferred to [facility] to see Dr. Liborio Whalen. Patient initially agreed and patient was accepted to be transferred to [facility]. She however changed her mind and decided she does not want anything except to get a little stronger and go home with hospice. She was accepted into the transitional care unit. During this hospital stay, patient had hypophosphatemia and hypomagnesemia that were replaced. Physical Exam Narrative Physical exam: General: Alert, Oriented x3, Cooperative, No apparent distress, Well developed HEENT: Atraumatic Oral: Moist Mucosa Neck: Supple Lungs: Clear to auscultation Cardiovascular: HS I+II, regular, no murmurs Abdomen: Bowel Sounds Present, Soft, Non Tender, vulvar exam not done Extremities: No edema Weight / BMI Weight Weight: 58.967 kg Body Mass Index (BMI) 21.4 ABG / Lab / Microbiology Data Result Diagrams: 08/27/20 05:25 08/27/20 05:25 Laboratory: Laboratory Results - last 24 hr 08/26/20 05:16: Phosphorus 2.6, Magnesium 1.4 L 08/27/20 05:25: WBC 11.0, RBC 3.21 L, Hgb 8.9 L, Hct 28.5 L, MCV 88.8, MCH 27.7, MCHC 31.2 L, RDW Std Deviation 44.9 H, RDW Coeff of Trey 13.9, Plt Count 287, MPV 8.0, Immature Gran % (Auto) 0.300, Neut % (Auto) 83.4 H, Lymph % (Auto) 5.1 L, [place] % (Auto) 4.9, Eos % (Auto) 5.5 H, Baso % (Auto) 0.8, Absolute Neuts (auto) 9.2 H, Absolute Lymphs (auto) 0.56 L, Nucleated RBC % 0, Differential Comment SCANNED 08/27/20 05:25: Sodium 136, Potassium 4.0, Chloride 105, Carbon Dioxide 25.0, Anion Gap 6, BUN 13, Creatinine 0.78, Estim Creat Clear Calc 36.16, Est GFR (MDRD) Af Amer 91, Est GFR (MDRD) Non-Af 75, BUN/Creatinine Ratio 16.7, Glucose 90, Calcium 8.8, Magnesium 2.3, Total Bilirubin 0.30, AST 8 L, ALT 9 L, Alkaline Phosphatase 82, Total Protein 4.5 L, Albumin 1.6 L, Globulin 2.9, Albumin/Globulin Ratio 0.6 L D/C Instructions Discharge Diet: No restrictions Meaningful Use Info Meaningful Use Diagnoses (Choose all that apply): None applicable Discharge Plan Admission Admit Date/Time: 08/25/20 16:06 Primary Reason for Your Visit: Debility, vulvar masses Attending Provider: Monica Gerardo Primary Care Provider: Tavon López Consulting Providers: Conchita Ibarra Discharge Orders/Prescriptions Prescriptions: Continued labetalol 200 MG tablet 300 mg PO BID RF: 0 amlodipine 5 MG tablet 10 mg PO DAILY@1700 RF: 0 esomeprazole magnesium [Nexium] 40 MG capsule 40 mg PO DAILY PRN PRN (Reason: stomach) RF: 0 No Action Calmoseptine 0.44-20.6 % ointment 1 applic topical TID RF: 0 Ensure Enlive 0.08 gram-1.5 kcal/mL liquid 120 ml PO 4X/DAY RF: 0 Referrals / Follow Up: Tavon López MD [Primary Care Provider] - Within 2 Weeks Disposition Disposition (needs filled in before D/C Order can be placed): Care Home Facility Charges/Coding Visit Charges Inpatient E&M: 09659 Disch Hosp
--- NOTE | 2020-08-27 11:25 | PHA.DC.MR ---
Pharmacy Service has performed discharge medication reconciliation for this patient. The patient's discharge medication list was reviewed for discrepancies and discrepancies were resolved. Home Medications amlodipine 10 mg PO DAILY@1700 06/24/15 esomeprazole magnesium [Nexium] 40 mg PO DAILY PRN PRN 06/24/15 labetalol 300 mg PO BID 06/24/15 food supplemt, lactose-reduced [Ensure Enlive] 120 ml PO 4X/DAY #0 ml 08/27/20 menthol-zinc oxide [Calmoseptine] 1 applic TOPICAL TID #0 g 08/27/20
--- NOTE | 2020-08-27 12:24 | NURSING ---
BOTH DR IVY AND DR MURRELL WAS IN TO REITERATE PTS OPTIONS W/PT AND DAUGHTER. PT DECLINED FURTHER TREATMENT OF THE VULVAR MASS AND JUST WANTS TO PROCEED W/THERAPY IN TCU AT THIS TIME.
--- NOTE | 2020-08-27 12:36 | NURSING ---
REPORT CALLED TO [facility] IN TCU, PT WILL GO TO BED 12.
== END 2020-08-27 13:35 | DRG 746 ==
LOC: ED 16:16 → MS3 16:42
PROVIDERS: Obstetrics & Gynecology; Admitting Provider Family Medicine; Emergency Provider Emergency Medicine; PCP Family Medicine; Visit Provider Internal Medicine
DX: C51.9 Malignant neoplasm of vulva, unspecified (principal); C77.4 Secondary and unspecified malignant neoplasm of inguinal and lower limb lymph nodes; C77.5 Secondary and unspecified malignant neoplasm of intrapelvic lymph nodes; E44.0 Moderate protein-calorie malnutrition; R62.7 Adult failure to thrive; Z68.21 Body mass index [BMI] 21.0-21.9, adult; E83.42 Hypomagnesemia; E83.39 Other disorders of phosphorus metabolism; R32 Unspecified urinary incontinence; R15.9 Full incontinence of feces; J44.9 Chronic obstructive pulmonary disease, unspecified; I10 Essential (primary) hypertension; E78.5 Hyperlipidemia, unspecified; K21.9 Gastro-esophageal reflux disease without esophagitis; Z20.822 Contact with and (suspected) exposure to COVID-19; R29.6 Repeated falls; Z79.899 Other long term (current) drug therapy; Z87.891 Personal history of nicotine dependence
CPT/HCPCS: 36415; 74177; 80053; 82607; 82728; 82746; 83540; 83550; 83735; 84100; 84145; 85025; 87426; 88305; 88342; 93005; 97110; 97162; 97166; 97530; 97535; 97802; 99284; J7030; J7050; Q9967; A4216

== ENCOUNTER 2020-08-27 13:40 | Inpatient (IN) | payer MEDICARE, SELFPAY ==
[2020-08-26 15:11] VITALS: BMI 21.4
[2020-08-27 14:02] VITALS: BP 109/52; PULSE 110; RESP 16; TEMP 36.6; O2SAT 94; BMI 22.5
[2020-08-27] MEDS: Labetalol 100 MG Tablet 300 MG PO (17:34)
[2020-08-27] MEDS: amLODIPine 10 MG Tablet PO (17:34)
[2020-08-27] MEDS: Menthol/Lanolin/Calamine/Znox 113 GM Tube 1 APPLIC TOPICAL (21:25)
--- NOTE | 2020-08-27 21:39 | HP.PCM_ITS ---
HPI - General General Date of Admission: 08/27/20 HPI Narrative 08/25/2020 TORSTEN SAEZ, is a 84 Female who presents to [facility] Emergency Department with generalized illness. 08/25/2020 EKG sinus rhythm with first degree AV block, septal infarct, age undetermined. Weak x 2 months, unable to walk. Vaginal area mass, unable to function at home. Family unable to care for her at home. Chronic urine and stool incontinence. Vaginal mass getting larger. Mild elevated WBC. CT abdomen/pelvis concerning for cancer with adenopathy. 08/25/2020 Admit to Hospital. PT/OT for debility. Consult INDUSTRIAL ENGINEERING TECHNICIAN vulvar mass. 08/26/2020 INDUSTRIAL ENGINEERING TECHNICIAN performed punch biopsy, recommended transfer to [facility] for evaluation of vulvar cancer. 08/27/2020 Patient declined transfer to [facility] for vulvar cancer, declined surgery or radiation. Patient would like to get stronger with rehabilitation, then discharge home with hospice. Low phosphorus replaced. Low magnesium replaced. Punch biopsy of vulvar mass showed invasive well to moderately differentated squamous cell cancer. 08/27/2020 Admit to TCU with debility, here for rehabilitation, strengthening, prior to discharge home with family and hospice. [facility] Medical History COPD (chronic obstructive pulmonary disease) Former tobacco use GERD (gastroesophageal reflux disease) HLD (hyperlipidemia) Hypertension Home Medications amlodipine 10 mg PO DAILY@1700 06/24/15 [History Last Taken 08/24/20 17:00] esomeprazole magnesium [Nexium] 40 mg PO DAILY PRN PRN 06/24/15 [History Last Taken Unknown] labetalol 300 mg PO BID 06/24/15 [History Last Taken 08/25/20 09:00] food supplemt, lactose-reduced [Ensure Enlive] 120 ml PO 4X/DAY 08/27/20 [History Last Taken Unknown] menthol-zinc oxide [Calmoseptine] 1 applic TOPICAL TID 08/27/20 [History Last Taken Unknown] Allergy/AdvReac Type Severity Reaction Status Date / Time atorvastatin calcium AdvReac Nausea Verified 08/25/20 17:11 [From Lipitor] erythromycin lactobionate AdvReac Nausea Verified 08/25/20 13:36 [From Erythrocin] rosuvastatin calcium AdvReac Nausea Verified 08/25/20 17:11 [From Crestor] Surgical History S/P cholecystectomy S/P tonsillectomy and adenoidectomy Social History household members: family Smoking Status: Former smoker how long ago did patient quit smoking: Patient quit 40 years ago, 1/2 ppd since teenager until quit. alcohol intake: never substance use type: does not use ROS Constitutional Constitutional: Denies chills, fever(s) or weight gain ENT HEENT: Denies headache(s), nasal congestion or nasal discharge Cardiovascular Cardiovascular: Denies chest pain or palpitations Respiratory/Chest Respiratory/Chest: Denies cough, excessive phlegm production or shortness of breath with exertion Gastrointestinal Gastrointestinal: Reports fecal incontinence; Denies abdominal pain, nausea or vomiting Genitourinary Genitourinary: Reports urinary incontinence and other Details: Vaginal mass. ; Denies dysuria Musculoskeletal Musculoskeletal: Denies joint pain or joint swelling Integumentary Integumentary: Denies rash or wounds Neurologic Neurologic: Denies focal weakness, numbness or tingling Psychiatric Psychiatric: Reports auditory hallucinations; Denies anxiety, depression, homicidal ideation or suicidal ideation Vital Signs Vital Signs Vital Signs: 08/27/20 14:02 Temperature 97.9 F Temperature Source Temporal Pulse Rate 110 H Pulse Rhythm Regular Pulse Strength Normal (2+) Respiratory Rate 16 Respiratory Effort Normal Non-Labored Respiratory Depth Normal Respiratory Pattern Normal Blood Pressure 109/52 L Blood Pressure Mean 71 Blood Pressure Source Monitor Blood Pressure Position Sitting Blood Pressure Location Left Arm Pulse Ox 94 Oxygen Delivery Method Room Air Weight Weight: 59.562 kg Body Mass Index (BMI) 22.5 Physical Exam Const alert and oriented x3 General Appearance: cooperative HEENT normocephalic Eyes PERRL and EOMs intact bilaterally Neck supple, no JVD and no carotid bruits Resp normal respiratory effort, normal air movement and clear to auscultation bilaterally Cardio regular rate and regular rhythm GI normal to inspection, nondistended, normoactive bowel sounds, non-tender and non-distended Extremity normal capillary refill General Extremity: Negative for edema Skin no rashes or lesions noted General Skin Exam: no breakdown Psych affect normal Appearance: appropriate Assessment & Plan Assessment/Plan (1) Debility: (2) Adult failure to thrive: (3) Primary vulvar squamous cell carcinoma: (4) Hypophosphatemia: (5) Hypomagnesemia: (6) Urinary incontinence: (7) Stool incontinence: (8) Chronic obstructive pulmonary disease: (9) Gastroesophageal reflux disease: (10) Hypertension: (11) Hyperlipidemia: PLAN: 84 year old female with below past medical history hospitalized for weakness secondary to metastatic squamous cell cancer of vulva, complicated by hypophosphatemia, hypomagnesemia, admitted to TCU with debility, here for rehabilitation, strengthening, prior to discharge home with family, and hospice. * Debility - PT/OT. * Pain - Tylenol 1000MG Q6H PRN pain (1-10). * Bowel - Senna/colace 1 tablet twice daily, Dulcolax 10MG daily PRN. * Adult immunization - Administer Prevnar 13, Pneumovax 23, Fluzone, COVID19 vaccine as appropriate. * DVT prophylaxis - Lovenox 30MG sc daily. * Hypertension - Labetalol 300MG twice daily, Amlodipine 10MG daily. * GERD - Pantoprazole 40MG daily. * Nutrition - Ensure Enlive 120ML 4x/day. * Skin irritation - Calmoseptine topical TID. * Metastatic squamous cell cancer of vulva - resident declined treatment, discharge home with hospice when feeling stronger.
[2020-08-28 05:44] LABS: Absolute Lymphocyte Count 0.75 X10^3/uL (0.83-4.51); Absolute Neutrophil Count 8.1 X10^3/uL (2.0-7.7); Basophil# 0.06 X10^3/uL; Basophil% 0.6 % (0-1); Eosinophil# 0.42 X10^3/uL; Eosinophils% 4.2 % (0-5); Hematocrit 26.2 % (37-47); Hemoglobin 8.3 g/dL (12.0-15.0); Lymphocyte # 0.75 X10^3/ul (0.83-4.51); Lymphocyte % 7.5 % (19-41); Mean Corp Hgb Conc 31.7 g/dL (32-36); Mean Corpuscular Hgb 27.9 pg (27.0-32.0); Mean Corpuscular Volume 87.9 fL (81-99); Mean Platelet Vol. 8.2 fl (6.2-12.0); Monocyte# 0.63 X10^3/uL; Monocyte% 6.3 % (0-10); NRBC Flagged by Analyzer 0 % (0-5); Neutrophil # 8.08 X10^3/uL (2.7-7.7); Neutrophil % 80.8 % (47-70); Platelet Count 287 K/mm3 (150-450); RBC Distribution Width CV 14.3 % (11.6-14.6); RBC Distribution Width SD 46.2 fl (35.1-43.9); Red Blood Count 2.98 M/mm3 (4.2-5.4)
[2020-08-28 05:56] VITALS: BP 120/54; PULSE 96; RESP 18; O2SAT 90
[2020-08-28 05:58] LABS: Anion Gap 2 (5-15); BUN 20 mg/dL (7-18); BUN/Creat Ratio 20.6 RATIO (10-20); Calcium,Total 9.2 mg/dL (8.5-10.1); Chloride 104 mmol/L (98-107); Creatinine, Serum 0.97 mg/dL (0.55-1.02); EST Glomerular Filtration Rate 58 mL/min (>60); Est Glom Filt Rate - Afr Amer 70 mL/min (>60); Estimated Creatinine Clearance 37.28 ml/min; Glucose 92 mg/dL (74-106); Potassium 4.5 mmol/L (3.5-5.1); Sodium Level 135 mmol/L (136-145)
[2020-08-28] MEDS: Menthol/Lanolin/Calamine/Znox 113 GM Tube 1 APPLIC TOPICAL ×3 (05:58→20:43)
[2020-08-28] MEDS: Labetalol 100 MG Tablet 300 MG PO ×2 (05:59→17:30)
[2020-08-28] MEDS: Enoxaparin 30 MG/0.3 ML Syringe SC (05:59)
[2020-08-28] MEDS: Senna/Docusate Sodium 1 Tablet PO ×2 (05:59→17:29)
--- NOTE | 2020-08-28 08:15 | PCM.PN.RX ---
Progress Note - Pharmacy Subjective: TCU Admission Objective: Allergies atorvastatin calcium [From Lipitor] Adverse Reaction (Verified 08/25/20 17:11) Nausea erythromycin lactobionate [From Erythrocin] Adverse Reaction (Verified 08/25/20 13:36) Nausea rosuvastatin calcium [From Crestor] Adverse Reaction (Verified 08/25/20 17:11) Nausea Current Medications Generic Name Dose Route Start Last Admin Trade Name Freq PRN Reason Stop Dose Admin Acetaminophen 1,000 mg 08/27/20 21:53 Acetaminophen 500 Mg Tablet PO Q6H PRN PRN Pain Score 1-10 Amlodipine Besylate 10 mg 08/27/20 17:00 08/27/20 17:34 Amlodipine 10 Mg Tablet PO 10 mg DINNER LACHELLE Administration Bisacodyl 10 mg 08/27/20 21:53 Bisacodyl 5 Mg Tablet PO DAILY PRN PRN Constipation Calamine/Phenol 1 applic 08/27/20 22:00 08/28/20 05:58 Menthol/Lanolin/Calamine/Znox 113 Gm Tube TOPICAL 1 applic TID LACHELLE Administration Protocol Labetalol HCl 300 mg 08/27/20 18:00 08/28/20 05:59 Labetalol 100 Mg Tablet PO 300 mg BID LACHELLE Administration Nutritional Formula (Lactose Free) 120 ml 08/27/20 17:00 08/28/20 05:58 Ensure Enlive 120 Ml Liquid PO 120 ml 4X/DAY LACHELLE Administration Pantoprazole Sodium 40 mg 08/27/20 14:14 Pantoprazole Sodium 40 Mg Tablet PO DAILY PRN PRN stomach Polysaccharide Iron Complex 150 mg 08/28/20 08:00 Iron Polysaccharide Complex 150 Mg Capsule PO DAILYCM LACHELLE Senna/Docusate Sodium 1 tablet 08/28/20 06:00 08/28/20 05:59 Senna/Docusate Sodium 1 Tablet PO 1 tablet BID LACHELLE Administration Tuberculin PPD 0.1 ml 08/28/20 10:00 Tuberculin,Purif.Prot.Deriv. 50 Tu/Ml Vial ID 08/28/20 10:01 X1 ONE Tuberculin PPD 0.1 ml 09/04/20 10:00 Tuberculin,Purif.Prot.Deriv. 50 Tu/Ml Vial ID 09/04/20 10:01 X1 ONE Problem List (Last Reviewed 08/27/20 @ 21:[address] John William MD) Hyperlipidemia (Acute) Hypertension (Chronic) Gastroesophageal reflux disease (Acute) Chronic obstructive pulmonary disease (Chronic) Stool incontinence (Acute) Urinary incontinence (Acute) Hypomagnesemia (Acute) Hypophosphatemia (Acute) Primary vulvar squamous cell carcinoma (Acute) Debility (Acute) Adult failure to thrive (Chronic) Vital Signs Temp Pulse Resp BP Pulse Ox 97.9 F 96 18 120/54 L 90 08/27/20 14:02 08/28/20 05:56 08/28/20 05:56 08/28/20 05:56 08/28/20 05:56 Oxygen Delivery Method Room Air Weight: 59.562 kg Body Mass Index (BMI) 22.5 Sodium 135 mmol/L (136-145) L 08/28/20 05:20 Potassium 4.5 mmol/L (3.5-5.1) 08/28/20 05:20 Chloride 104 mmol/L (98-107) 08/28/20 05:20 Carbon Dioxide 29.0 mmol/L (21.0-32.0) 08/28/20 05:20 Anion Gap 2 (5-15) L 08/28/20 05:20 BUN 20 mg/dL (7-18) H 08/28/20 05:20 Creatinine 0.97 mg/dL (0.55-1.02) 08/28/20 05:20 Est GFR (MDRD) Af Amer 70 mL/min (>60) 08/28/20 05:20 Est GFR (MDRD) Non-Af 58 mL/min (>60) L 08/28/20 05:20 BUN/Creatinine Ratio 20.6 RATIO (10-20) H 08/28/20 05:20 Glucose 92 mg/dL (74-106) 08/28/20 05:20 Assessment/Plan: 1. Pain: acetaminophen 1000mg PO Q6H PRN pain 1-11/17. Please continue to monitor for increased pain and PRN usage. 2. Hypertension: labetalol 300mg PO BID and amlodipine 10mg PO dinner. Please continue to monitor HR (last 96), BP (last 120/54) and for swelling. 3. GERD: pantoprazole 40mg PO daily PRN stomach. Please continue to monitor for S/S of GERD and PRN usage. 4. Iron deficiency (hemoglobin 8.3g/dL): Ferrex 150mg PO DAILYCM. Please continue to monitor hemoglobin, constipation and for dark stools Psychotropic Medications: None Unnecessary Medications: None Bowel Regimen: senna/docusate 1T PO BID and bisacodyl 10mg PO daily PRN constipation. Please continue to monitor for constipation and PRN usage. Date of Note:: 08/28/20
[2020-08-28] MEDS: Iron Polysaccharide Complex 150 MG CAPSULE PO (08:36)
[2020-08-28] MEDS: Tuberculin,Purif.prot.deriv. 50 TU/ML Vial 0.1 ML ID (12:13)
--- NOTE | 2020-08-28 12:48 | CASEMGMT ---
Social Work Referral for Palliative Care per Dr. William/screening tool results made. Telephone call to [facility], voicemail left on confidential voicemail with referral information. Anthony Mueller MSW, JENNIFER-S
[2020-08-28 14:36] VITALS: BP 98/47; PULSE 83; RESP 16; TEMP 36.7; O2SAT 92
[2020-08-28] MEDS: amLODIPine 10 MG Tablet PO (17:28)
[2020-08-28 17:33] VITALS: BP 124/51; PULSE 89
[2020-08-28] MEDS: Acetaminophen 500 MG Tablet 1000 MG PO (20:42)
[2020-08-28] MEDS: Pantoprazole Sodium 40 MG Tablet PO (20:42)
[2020-08-28 20:45] VITALS: RESP 18
[2020-08-29 05:33] VITALS: BP 104/36; PULSE 77; RESP 18; TEMP 36.5; O2SAT 93
[2020-08-29] MEDS: Menthol/Lanolin/Calamine/Znox 113 GM Tube 1 APPLIC TOPICAL ×3 (05:37→21:19)
[2020-08-29] MEDS: Senna/Docusate Sodium 1 Tablet PO ×2 (05:37→17:57)
[2020-08-29] MEDS: Iron Polysaccharide Complex 150 MG CAPSULE PO (08:31)
--- NOTE | 2020-08-29 10:02 | CON.PCM.PA_ITS ---
Assessment & Plan Assessment/Plan (1) Debility: (2) Vulvar mass: (3) Chronic renal failure, stage 3 (moderate): QUALIFIERS: Chronic kidney disease stage 3 subtype: stage 3a (GFR 45-59) Qualified Code(s): N18.31 - Chronic kidney disease, stage 3a (4) Primary vulvar squamous cell carcinoma: (5) Hypophosphatemia: (6) Hypomagnesemia: (7) Urinary incontinence: QUALIFIERS: Urinary Incontinence type: functional incontinence Qualified Code(s): R39.81 - Functional urinary incontinence (8) Stool incontinence: QUALIFIERS: Fecal incontinence type: unspecified Qualified Code(s): R15.9 - Full incontinence of feces (9) Chronic obstructive pulmonary disease: QUALIFIERS: COPD type: unspecified COPD Qualified Code(s): J44.9 - Chronic obstructive pulmonary disease, unspecified (10) Gastroesophageal reflux disease: QUALIFIERS: Esophagitis presence: without esophagitis Qualified Code(s): K21.9 - Gastro-esophageal reflux disease without esophagitis (11) Hypertension: QUALIFIERS: Hypertension type: unspecified Qualified Code(s): I10 - Essential (primary) hypertension (12) Hyperlipidemia: QUALIFIERS: Hyperlipidemia type: unspecified Qualified Code(s): E78.5 - Hyperlipidemia, unspecified PLAN: 84-year-old female with vulvar squamous cell carcinoma, significant vulvar mass, has declined treatment. Currently in transitional care unit with hopes of regaining some strength to return back home. The plan is actually for her to eventually go hospice when she is out of TCU, unclear why palliative was consulted. 1. Debility and weakness: Again, in TCU for rehab. Hopefully she can regain enough strength to go back home with hospice. Continue with therapy 2. Urinary and fecal incontinence: This will complicate her compromised skin in the periarea, wound care is following and nursing using, Ceftin 3 times a day. Monitor for infection 3. Vulvar squamous cell carcinoma: Has declined further evaluation or treatment. Supportive care, refusing pain medications. Mass has been present at least 6 months. Patient does have a poor prognosis with a life expectancy of less than 6 months. 4. Electrolyte imbalances: Her phosphorus and magnesium have been replaced, would may be check in a week and replace if needed. 5 CKD stage III/COPD/GERD/hypertension/hyperlipidemia: Complicates overall care, management, recovery, and prognosis. Thank you for the opportunity to participate in this patient's care, please do not hesitate to contact [facility] with any further questions or concerns. Palliative direct line is [phone]. Hospice plans to see patient when she is closer to discharge. Greater than 50% of F2F visit dedicated to education and counseling of palliativ e care services, medications, comorbid conditions and potential assistance with management, and plan of care moving forward. Start time: 1002 End time: 105 HPI Consult Data Date of Consult: 08/29/20 HPI Narrative HPI Narrative: TORSTEN SAEZ, is a 84 F, PMH as below, who originally presented to [facility] 08/25/2020 with progressive decline and falls at home. Patient has a history of a vulvar mass for about 6 months with foul-smell ing wounds from the groin and vaginal region. She has been refusing previous evaluation, however it became too much and she was unable to ambulate so sought evaluation. She was seen by JAW SKINNER, who recommended she be transferred to a tertiary care center to see Dr. Tree Whalen, however patient then declined further evaluation. She did have a punch biopsy of the vulvar mass which showed invasive well to moderately differentiated squamous cell carcinoma. She was agreeable to go to rehab for some therapy, then she wishes to go home with hospice. Patient does have chronic urine and stool incontinence. She did have elevation of white count, however that has returned to normal. She is anemic with a hemoglobin of 8.3 as of 08/28/2020. She has received electrolyte replacement. Patient has refused to take any pain medications. Her keyona area is extremely excoriated. The wound nurse is following. They are using calmoseptine ointment 3 times per day. She was having some issues with constipation, now on senna S1 tablet twice daily. She is also on iron, which could be constipating. As needed medication for pain includes acetaminophen 1 g every 6 hours as needed. Patient lives at home with her daughter Stephania in a mobile home with 5 steps to enter. It is difficult for her to get up and down steps at this time due to her weakness. Her daughter takes her to her doctor's appointments. She does have a cane and walker at home. She uses [facility] in [place] for pharmacy. She does not have a living will or power of finance attorney. Patient denies any current pain. She said she is just sore but the treatment she is receiving (calmoseptine) is significantly helping. Denies any N/V/D. She is a little constipated but was started on medications. Unfortunately, she has stool in urine incontinence. No dysuria. No cough, fever/chills, chest congestion. No shortness of breath or chest pain. No significant edema. Denies any focal weakness. [facility] Medical History COPD (chronic obstructive pulmonary disease) Former tobacco use GERD (gastroesophageal reflux disease) HLD (hyperlipidemia) Hypertension Home Medications amlodipine 10 mg PO DAILY@1700 06/24/15 [History Last Taken 08/24/20 17:00] esomeprazole magnesium [Nexium] 40 mg PO DAILY PRN PRN 06/24/15 [History Last Taken Unknown] labetalol 300 mg PO BID 06/24/15 [History Last Taken 08/25/20 09:00] food supplemt, lactose-reduced [Ensure Enlive] 120 ml PO 4X/DAY 08/27/20 [History Last Taken Unknown] menthol-zinc oxide [Calmoseptine] 1 applic TOPICAL TID 08/27/20 [History Last Taken Unknown] Allergy/AdvReac Type Severity Reaction Status Date / Time atorvastatin calcium AdvReac Nausea Verified 08/25/20 17:11 [From Lipitor] erythromycin lactobionate AdvReac Nausea Verified 08/25/20 13:36 [From Erythrocin] rosuvastatin calcium AdvReac Nausea Verified 08/25/20 17:11 [From Crestor] Surgical History S/P cholecystectomy S/P tonsillectomy and adenoidectomy Social History household members: family Smoking Status: Former smoker how long ago did patient quit smoking: Patient quit 40 years ago, 1/2 ppd since teenager until quit. alcohol intake: never substance use type: does not use ROS ROS Narrative Review of systems otherwise negative from a constitutional, HEENT, respiratory, cardiovascular, GI, genitourinary, musculoskeletal, skin, neurologic, psychiatric and hematologic system unless stated above. Physical Exam Const alert, oriented x3 and no apparent distress General Appearance: cooperative, comfortable and well kempt HEENT normocephalic and head/scalp atraumatic Neck supple General: trachea midline Resp normal respiratory effort Effort and Inspection: able to speak in complete sentences and symmetric chest movement Auscultation: clear to auscultation bilaterally and diminished lung sounds Cardio regular rate, regular rhythm, S1 normal heart sound and S2 normal heart sound GI normal to inspection, nondistended, normoactive bowel sounds Extremity no clubbing, cyanosis or edema Skin Skin Narrative: Periarea excoriated, down medial thighs General Skin Exam: erythema and excoriation(s) Neuro CN's II-XII intact bilaterally and no focal motor deficits Psych mental status grossly normal Memory / Cognition: memory grossly intact
--- NOTE | 2020-08-29 10:27 | NURSING ---
Was asked to see patient d/t yellow drainage from vulvar region. This nurse had assessed patient while on the acute side of the hospital. Pt has a large fungating mass to the vulvar region. Pt was seen by OBGYN who had recommended transfer to a tertiary care facility, but patient denied transfer and is denying treatment. a biopsy was performed on 08/26/20 which confirmed invasive moderately differentiated squamous cell carcinoma. Pt is currently sitting up in chair so this nurse did not assess the area at this time. Pt has a Hospice consult today. main goals will most likely be pain and odor control. Pt has been having some bleeding and discharge from this area even prior to admission to the hospital so this is not new and does not necessarily mean the area is infected. would recommend keeping the area as clean and dry as possible. will monitor as needed.
[2020-08-29 16:30] VITALS: BP 107/50; PULSE 91; RESP 17; TEMP 36.6; O2SAT 94
[2020-08-29] MEDS: amLODIPine 10 MG Tablet PO (17:57)
[2020-08-29] MEDS: Labetalol 100 MG Tablet 300 MG PO (17:57)
[2020-08-30 04:00] VITALS: BP 109/43; PULSE 85; RESP 16; TEMP 36.7; O2SAT 92
[2020-08-30 07:05] LABS: Hematocrit 25.9 % (37-47); Hemoglobin 8.1 g/dL (12.0-15.0)
[2020-08-30] MEDS: Menthol/Lanolin/Calamine/Znox 113 GM Tube 1 APPLIC TOPICAL ×3 (07:12→21:12)
[2020-08-30] MEDS: Senna/Docusate Sodium 1 Tablet PO ×2 (07:12→17:00)
[2020-08-30] MEDS: Labetalol 100 MG Tablet 300 MG PO ×2 (07:13→17:03)
[2020-08-30] MEDS: Iron Polysaccharide Complex 150 MG CAPSULE PO (09:29)
[2020-08-30 15:47] VITALS: BP 92/50; PULSE 83; RESP 17; TEMP 36.9; O2SAT 91
[2020-08-30] MEDS: amLODIPine 10 MG Tablet PO (17:04)
[2020-08-30 17:13] VITALS: BP 101/42; PULSE 86
[2020-08-30] MEDS: Pantoprazole Sodium 40 MG Tablet PO (21:12)
[2020-08-30 23:25] VITALS: PULSE 79; RESP 14
[2020-08-31 05:53] VITALS: BP 99/40; PULSE 87; RESP 16; TEMP 36.3; O2SAT 98
[2020-08-31] MEDS: Senna/Docusate Sodium 1 Tablet PO (05:55)
[2020-08-31] MEDS: Menthol/Lanolin/Calamine/Znox 113 GM Tube 1 APPLIC TOPICAL ×3 (05:55→22:23)
[2020-08-31] MEDS: Iron Polysaccharide Complex 150 MG CAPSULE PO (09:01)
[2020-08-31 10:00] VITALS: PULSE 94; RESP 18; O2SAT 90
[2020-08-31 14:14] VITALS: BP 112/53; PULSE 91; RESP 16; TEMP 36.6; O2SAT 93
[2020-08-31] MEDS: amLODIPine 10 MG Tablet PO (16:59)
[2020-08-31] MEDS: Labetalol 100 MG Tablet 300 MG PO (16:59)
[2020-09-01 04:00] VITALS: BP 102/41; PULSE 91; RESP 12; TEMP 36.3; O2SAT 92
[2020-09-01] MEDS: Menthol/Lanolin/Calamine/Znox 113 GM Tube 1 APPLIC TOPICAL ×3 (05:51→22:58)
[2020-09-01] MEDS: Labetalol 100 MG Tablet 300 MG PO ×2 (05:52→17:36)
[2020-09-01 06:57] VITALS: BP 102/41; PULSE 91; RESP 12; TEMP 36.3; O2SAT 92
[2020-09-01] MEDS: Iron Polysaccharide Complex 150 MG CAPSULE PO (08:01)
[2020-09-01 14:08] VITALS: BP 97/45; PULSE 91; RESP 16; TEMP 36.1; O2SAT 96
--- NOTE | 2020-09-01 16:30 | NURSING ---
pt incont of urine, keyona care provied, washed with soap and water, dried as much as possible. troy applied to coccyx area. pt incont so did not apply a mepilex. will cont to monitor and encourage pt to turn side to side.
[2020-09-01 17:35] VITALS: BP 128/54; PULSE 102
[2020-09-01] MEDS: amLODIPine 10 MG Tablet PO (17:36)
[2020-09-02 05:39] VITALS: BP 113/46; PULSE 92; RESP 16; TEMP 37.5; O2SAT 93
[2020-09-02] MEDS: Menthol/Lanolin/Calamine/Znox 113 GM Tube 1 APPLIC TOPICAL ×3 (05:42→21:24)
[2020-09-02 06:15] VITALS: O2SAT 93
--- NOTE | 2020-09-02 07:35 | RAD_ITS ---
STUDY: X-RAY CHEST REASON FOR EXAM: Female, 84 years old. Fever TECHNIQUE: AP and lateral views of the chest. COMPARISON: Comparison is made with prior study dated 06/25/2015. FINDINGS: Hyperinflation. Mild increased linear markings at the left lung base with blunting of the left costophrenic angle. Normal size heart. Normal mediastinum and christina. Normal visualized pulmonary arteries. There is atherosclerotic calcification of the aortic arch with tortuosity. There is demineralization of the osseous structures. Normal visualized ribs, clavicles, and shoulders. There is no demonstrated abnormality of the visualized soft tissue structures of the upper abdomen. RAD/Chest PA and Lateral IMPRESSION: Mild degree of increased markings at the left lung base with blunting of the left costophrenic angle. Electronically Signed: Tae Obando MD at 15:33 EDT , Service support ,
--- NOTE | 2020-09-02 08:18 | NURSING ---
Dr. William updated on unit this am of assessment findings. New orders received for CXR. Dayshiharinder RN present during conversation.
[2020-09-02] MEDS: Iron Polysaccharide Complex 150 MG CAPSULE PO (09:24)
--- NOTE | 2020-09-02 13:55 | NURSING ---
Pt is currently sitting up in the chair. states the calmoseptine seems to help with some of the discomfort. denies needs at this time.
[2020-09-02 14:13] VITALS: BP 125/52; PULSE 99; RESP 19; TEMP 36.8; O2SAT 96
[2020-09-02] MEDS: amLODIPine 10 MG Tablet PO (18:02)
--- NOTE | 2020-09-02 18:32 | NURSING ---
Pt's Blood Pressure 114/[address] William updated okay to hold Trandate and decrease dose to 100 mg BID starting 09/03/20
[2020-09-03 05:15] VITALS: BP 132/49; PULSE 100; RESP 18; TEMP 37.2; O2SAT 92
[2020-09-03] MEDS: Labetalol 100 MG Tablet PO ×2 (05:23→17:02)
[2020-09-03] MEDS: Menthol/Lanolin/Calamine/Znox 113 GM Tube 1 APPLIC TOPICAL ×3 (05:23→21:14)
[2020-09-03] MEDS: Iron Polysaccharide Complex 150 MG CAPSULE PO (09:18)
[2020-09-03 13:50] VITALS: BP 110/41; PULSE 91; RESP 14; TEMP 37; O2SAT 93
[2020-09-03] MEDS: amLODIPine 10 MG Tablet PO (17:02)
[2020-09-03] MEDS: Senna/Docusate Sodium 1 Tablet PO (17:02)
[2020-09-03 17:05] VITALS: BP 114/48; PULSE 92
[2020-09-03] MEDS: Acetaminophen 500 MG Tablet 1000 MG PO (21:29)
[2020-09-04 05:35] LABS: Absolute Lymphocyte Count 0.81 X10^3/uL (0.83-4.51); Absolute Neutrophil Count 10.8 X10^3/uL (2.0-7.7); Basophil# 0.07 X10^3/uL; Basophil% 0.5 % (0-1); Eosinophil# 0.73 X10^3/uL; Eosinophils% 5.5 % (0-5); Hematocrit 25.9 % (37-47); Hemoglobin 8.2 g/dL (12.0-15.0); Lymphocyte # 0.81 X10^3/ul (0.83-4.51); Lymphocyte % 6.1 % (19-41); Mean Corp Hgb Conc 31.7 g/dL (32-36); Mean Corpuscular Hgb 27.5 pg (27.0-32.0); Mean Corpuscular Volume 86.9 fL (81-99); Mean Platelet Vol. 7.9 fl (6.2-12.0); Monocyte# 0.85 X10^3/uL; Monocyte% 6.4 % (0-10); NRBC Flagged by Analyzer 0 % (0-5); Neutrophil # 10.84 X10^3/uL (2.7-7.7); Neutrophil % 81.1 % (47-70); Platelet Count 426 K/mm3 (150-450); RBC Distribution Width CV 14.4 % (11.6-14.6); RBC Distribution Width SD 45.9 fl (35.1-43.9); Red Blood Count 2.98 M/mm3 (4.2-5.4); White Blood Count 13.4 K/mm3 (4.4-11.0)
[2020-09-04 05:44] VITALS: BP 110/43; PULSE 85; RESP 18; TEMP 36.4; O2SAT 90
[2020-09-04] MEDS: Menthol/Lanolin/Calamine/Znox 113 GM Tube 1 APPLIC TOPICAL ×3 (05:49→20:30)
[2020-09-04 05:50] LABS: Anion Gap 3 (5-15); BUN 29 mg/dL (7-18); BUN/Creat Ratio 30.1 RATIO (10-20); Calcium,Total 11.8 mg/dL (8.5-10.1); Chloride 97 mmol/L (98-107); Creatinine, Serum 0.96 mg/dL (0.55-1.02); EST Glomerular Filtration Rate 59 mL/min (>60); Est Glom Filt Rate - Afr Amer 71 mL/min (>60); Estimated Creatinine Clearance 37.67 ml/min; Glucose 88 mg/dL (74-106); Sodium Level 132 mmol/L (136-145)
[2020-09-04] MEDS: Labetalol 100 MG Tablet PO ×2 (05:50→17:51)
[2020-09-04] MEDS: Iron Polysaccharide Complex 150 MG CAPSULE PO (08:11)
[2020-09-04 09:35] VITALS: PULSE 83; RESP 18; O2SAT 92
[2020-09-04] MEDS: Tuberculin,Purif.prot.deriv. 50 TU/ML Vial 0.1 ML ID (13:45)
[2020-09-04 13:57] VITALS: BP 104/45; PULSE 91; RESP 17; TEMP 36.7; O2SAT 95
[2020-09-04] MEDS: Pantoprazole Sodium 40 MG Tablet PO (14:11)
--- NOTE | 2020-09-04 16:10 | CASEMGMT ---
Social Work Plan of care meeting held with pt and two daughters in attendance. Pt is receiving PT/OT and participating well. Pt presents with a new cancer diagnosis and is choosing not to seek treatment. Pt would like to get stronger and return home with her daughter. Pt daughter states that there are 5 steps into mobile home and that pt will be alone during the day when daughter is at work. Pt is here under Medicare benefit which SW explained to pt and dgts. Pt copay responsibility will start on 09/16 and family made aware and state they will be able to cover this amount. ESPINOZA spoke with family about discharge plan. Provided resources for private duty aids, Medicaid application, hospice brochure and SNF list. Discuss plan B if pt is not able to return home and although family did not have an answer, they were accepting and appreciative of information. ESPINOZA also discussed Hospice services with them and pt and dgts open to this service. Referral to be made closer to time of discharge. No discharge date set at this time. Will continue with treatment plan on TCU. JIL Rod
[2020-09-04] MEDS: amLODIPine 10 MG Tablet PO (17:51)
[2020-09-04] MEDS: Senna/Docusate Sodium 1 Tablet PO (17:51)
[2020-09-05 05:00] VITALS: BP 115/46; PULSE 101; RESP 16; TEMP 36.8; O2SAT 90
[2020-09-05] MEDS: Senna/Docusate Sodium 1 Tablet PO ×2 (05:16→17:19)
[2020-09-05] MEDS: Labetalol 100 MG Tablet PO ×2 (05:16→17:19)
[2020-09-05] MEDS: Menthol/Lanolin/Calamine/Znox 113 GM Tube 1 APPLIC TOPICAL ×3 (05:16→19:38)
[2020-09-05] MEDS: Iron Polysaccharide Complex 150 MG CAPSULE PO (07:51)
--- NOTE | 2020-09-05 13:37 | NURSING ---
Resident educated on the COVID Vaccine and has declined to receive it at this time.
[2020-09-05 13:46] VITALS: BP 107/49; PULSE 90; RESP 18; TEMP 36.4; O2SAT 96
[2020-09-05] MEDS: amLODIPine 10 MG Tablet PO (17:19)
[2020-09-06] MEDS: Senna/Docusate Sodium 1 Tablet PO (05:27)
[2020-09-06] MEDS: Menthol/Lanolin/Calamine/Znox 113 GM Tube 1 APPLIC TOPICAL ×3 (05:27→23:09)
[2020-09-06 05:33] VITALS: BP 106/46; PULSE 85; RESP 16; TEMP 36.7; O2SAT 90
[2020-09-06] MEDS: Iron Polysaccharide Complex 150 MG CAPSULE PO (08:43)
[2020-09-06 14:30] VITALS: BP 102/42; PULSE 91; RESP 16; TEMP 36.4; O2SAT 91
[2020-09-07 05:08] VITALS: BP 104/50; PULSE 100; RESP 16; TEMP 36.3; O2SAT 92
[2020-09-07] MEDS: Acetaminophen 500 MG Tablet 1000 MG PO (05:11)
[2020-09-07] MEDS: Menthol/Lanolin/Calamine/Znox 113 GM Tube 1 APPLIC TOPICAL ×3 (05:12→20:21)
[2020-09-07] MEDS: Pantoprazole Sodium 40 MG Tablet PO (09:24)
[2020-09-07] MEDS: Iron Polysaccharide Complex 150 MG CAPSULE PO (09:24)
[2020-09-07 15:31] VITALS: BP 102/55; PULSE 107; RESP 18; TEMP 36.3; O2SAT 95
[2020-09-07] MEDS: Labetalol 100 MG Tablet PO (18:18)
[2020-09-07] MEDS: amLODIPine 10 MG Tablet PO (18:19)
[2020-09-07 18:20] VITALS: BP 134/59; PULSE 112
[2020-09-07 23:10] VITALS: O2SAT 93
[2020-09-08 05:00] VITALS: BP 116/52; PULSE 94; RESP 14; TEMP 36.4; O2SAT 91
[2020-09-08] MEDS: Menthol/Lanolin/Calamine/Znox 113 GM Tube 1 APPLIC TOPICAL ×3 (06:23→22:47)
[2020-09-08] MEDS: Senna/Docusate Sodium 1 Tablet PO ×2 (06:30→17:15)
[2020-09-08] MEDS: Labetalol 100 MG Tablet PO ×2 (06:30→17:15)
[2020-09-08] MEDS: Iron Polysaccharide Complex 150 MG CAPSULE PO (09:33)
--- NOTE | 2020-09-08 12:02 | NURSING ---
pt with emesis during lunch meal, daughters concerned that she has not been getting her nexium that she takes at home. explained that we do not carry nexium here and pt has PRN protonix. dr padilla updated, new order to change to daily scheduled.
[2020-09-08] MEDS: Pantoprazole Sodium 40 MG Tablet PO (12:24)
[2020-09-08] MEDS: Mineral Oil/Petrolatum Cr 1.75oz Bottle 1 APPLIC TOPICAL ×2 (13:42→22:48)
[2020-09-08 13:52] VITALS: BP 87/46; PULSE 91; RESP 18; TEMP 36.8; O2SAT 91
[2020-09-08 13:56] VITALS: PULSE 91; RESP 16; O2SAT 91
[2020-09-08] MEDS: Bisacodyl 5 MG Tablet 10 MG PO (14:05)
[2020-09-08 17:14] VITALS: BP 109/50; PULSE 93
--- NOTE | 2020-09-08 18:24 | NURSING ---
pt assisted to BR, ambulated with walker and 2 assist. pt able to have a small to moderate soft BM, incont of urine. vulvular mass cleansed with soap/water and aquafor applied per order. area odorous d/t mod amt of drng and some bleeding noted. pt denies pain, pt very weak and did SPT x2 staff to recliner chair. pt resting in chair, legs elevated, call light in reach.
[2020-09-09 05:36] VITALS: BP 121/59; PULSE 96; RESP 16; TEMP 36.3; O2SAT 92
[2020-09-09] MEDS: Mineral Oil/Petrolatum Cr 1.75oz Bottle 1 APPLIC TOPICAL ×3 (05:38→20:28)
[2020-09-09] MEDS: Menthol/Lanolin/Calamine/Znox 113 GM Tube 1 APPLIC TOPICAL ×3 (05:38→20:35)
[2020-09-09] MEDS: Pantoprazole Sodium 40 MG Tablet PO (05:39)
[2020-09-09] MEDS: Senna/Docusate Sodium 1 Tablet PO ×2 (05:39→17:29)
[2020-09-09] MEDS: Iron Polysaccharide Complex 150 MG CAPSULE PO (09:30)
[2020-09-09] MEDS: Labetalol 100 MG Tablet PO (09:31)
--- NOTE | 2020-09-09 14:31 | MDS.RN ---
Information for the mds was obtained from review of the clinical record, interview of resident, staff, and direct observation of resident's care.
[2020-09-09 14:34] VITALS: BP 99/44; PULSE 88; RESP 17; TEMP 36.8; O2SAT 93
[2020-09-10 05:44] VITALS: BP 98/48; PULSE 69; RESP 18; TEMP 36.8; O2SAT 93
[2020-09-10] MEDS: Mineral Oil/Petrolatum Cr 1.75oz Bottle 1 APPLIC TOPICAL ×3 (05:46→20:19)
[2020-09-10] MEDS: Menthol/Lanolin/Calamine/Znox 113 GM Tube 1 APPLIC TOPICAL ×3 (05:47→20:19)
[2020-09-10] MEDS: Senna/Docusate Sodium 1 Tablet PO ×2 (05:47→17:34)
[2020-09-10] MEDS: Pantoprazole Sodium 40 MG Tablet PO (05:48)
[2020-09-10] MEDS: Acetaminophen 500 MG Tablet 1000 MG PO ×2 (06:45→20:28)
[2020-09-10 09:36] VITALS: BP 119/54; PULSE 93
--- NOTE | 2020-09-10 09:42 | NURSING ---
vitals done,pt can hardly stay awake. meds not given at this time. will wake up when touching pt and yelling her name then pt goes right back to sleep. rn aware.
[2020-09-10] MEDS: Labetalol 100 MG Tablet PO (11:29)
--- NOTE | 2020-09-10 11:31 | NURSING ---
Resident now awake and talking to daughter in room. Talked to daughter and resident about her being so sleepy and declining. Too weak to do therapy. Both agree with this. front desk worker, Tiffany, aware and will be in to talk with daughter and resident.
--- NOTE | 2020-09-10 12:26 | CASEMGMT ---
Addendum entered by Tiffany Cash 09/10/20 12:44: Per pt dgt, appointment has been made with [facility] for at 11:30 and [facility] indicates pt will likely not qualify for the [facility]. Dgt updated that referral has been sent to [facility] and we are awaiting determination. JIL Rod Original Note: Social Work SW met with team who are indicating pt is having a functional and medical decline in status. SW met with pt and daughter Arianne. Arianne verbalizes understanding of pt decline and that discharge planning needs to take place. Arianne requesting pt go to Hospice Inpatient Unit. SW explained that a patient must meet certain qualifications to go to IPU and SW is uncertain that pt would meet these qualifications at this time but Hospice would make that determination. If pt is unable to go to IPU, then pt and family would like placement at [facility]. SW inquired about finances as pt would go private pay. Arianne states that her sister has spoke with S and pt already has Medicaid for Part D which would need to be switched to senior care Medicaid. Referral to [facility] and to [facility]. [facility] has beds available and will review. SW will await determination. Hospice to reach out to pt dgt to set appointment. Emotional support provided to opt dgt. JIL Cox
[2020-09-10 13:58] VITALS: BP 95/46; PULSE 78; RESP 14; TEMP 36.7; O2SAT 95
--- NOTE | 2020-09-10 15:30 | CASEMGMT ---
Social Work ESPINOZA spoke with Margret at [facility] who states pt has QI1 Medicaid and Margret is unable to tell this SW how to switch pt to long term Medicaid. ESPINOZA then called Jennifer at [facility] and left VM requesting assistance with changing Medicaid status. ESPINOZA will await return call. JIL Rod
[2020-09-10] MEDS: amLODIPine 10 MG Tablet PO (17:35)
[2020-09-11 05:37] LABS: Absolute Neutrophil Count 19.6 X10^3/uL (2.0-7.7); Basophil# 0.02 X10^3/uL; Basophil% 0.1 % (0-1); Eosinophil# 0.29 X10^3/uL; Eosinophils% 1.3 % (0-5); Hematocrit 25.6 % (37-47); Lymphocyte % 2.8 % (19-41); Mean Corp Hgb Conc 31.3 g/dL (32-36); Mean Corpuscular Hgb 27.3 pg (27.0-32.0); Mean Corpuscular Volume 87.4 fL (81-99); Mean Platelet Vol. 8.4 fl (6.2-12.0); Monocyte# 1.13 X10^3/uL; Monocyte% 5.2 % (0-10); NRBC Flagged by Analyzer 0 % (0-5); Neutrophil # 19.61 X10^3/uL (2.7-7.7); POSITIVE DIFFERENTIAL YES; Platelet Count 388 K/mm3 (150-450); RBC Distribution Width CV 14.5 % (11.6-14.6); RBC Distribution Width SD 46.7 fl (35.1-43.9); Red Blood Count 2.93 M/mm3 (4.2-5.4); White Blood Count 21.8 K/mm3 (4.4-11.0)
[2020-09-11 05:47] LABS: Differential Indicated SCAN CRITERIA MET
[2020-09-11 05:55] LABS: Anion Gap 7 (5-15); BUN 86 mg/dL (7-18); BUN/Creat Ratio 23.8 RATIO (10-20); Calcium,Total 11.4 mg/dL (8.5-10.1); Chloride 92 mmol/L (98-107); Creatinine, Serum 3.62 mg/dL (0.55-1.02); EST Glomerular Filtration Rate 13 mL/min (>60); Est Glom Filt Rate - Afr Amer 15 mL/min (>60); Estimated Creatinine Clearance 9.99 ml/min; Glucose 96 mg/dL (74-106); Potassium 6.1 mmol/L (3.5-5.1); Sodium Level 128 mmol/L (136-145)
[2020-09-11 06:23] VITALS: BP 103/44; PULSE 88; RESP 16; TEMP 36.4; O2SAT 94
[2020-09-11] MEDS: Mineral Oil/Petrolatum Cr 1.75oz Bottle 1 APPLIC TOPICAL (06:24)
[2020-09-11] MEDS: Pantoprazole Sodium 40 MG Tablet PO (06:25)
[2020-09-11] MEDS: Menthol/Lanolin/Calamine/Znox 113 GM Tube 1 APPLIC TOPICAL (06:25)
[2020-09-11] MEDS: Senna/Docusate Sodium 1 Tablet PO (06:26)
--- NOTE | 2020-09-11 06:39 | NURSING ---
pt had not voided much trough evening and she had a bladder scan resulting in greater than a 1000ml, then got a call about her potassium 6.1. Called doctor and he gave telepone order for kayelate 30g, placement of a indwelling cath and recheck a bmp in am 8/5. Orders placed.
--- NOTE | 2020-09-11 08:22 | CASEMGMT ---
Social Work Nursing updated SW that pt is declining and nursing did notify pt daughters and request they come in. SW spoke with [facility] and requested meeting with family that is scheduled for be moved up to today. Updated clinicals faxed. Dio states that a nurse could be here between 9:30 and 10. VM left with pt dgt Arianne and updated. Phone call to pt dgt Pam. Ornelas states she spoke with the nurse and is aware of pt situation. Arianne is on her way from out of town and Ceci and Arianne will be in at 10. Emotional support provided to Pam. Palmer at Hospice updated on time of family arrival and he plans to be here at 10. Nursing updated. JIL Rod
--- NOTE | 2020-09-11 09:10 | NURSING ---
Dr William aware of labs and unable to get mulligan in d/t vulvular mass, meeting much resistance. Wants Dr Wolff notified for mulligan insertion or suprapubic cath, if Mariella unable to do today then notify Dr Tripp. Mariella office notified, will return call shortly.
[2020-09-11] MEDS: Iron Polysaccharide Complex 150 MG CAPSULE PO (09:16)
--- NOTE | 2020-09-11 10:16 | NURSING ---
Hospice here to speak with family and patient.
[2020-09-11] MEDS: oxyCODONE 5 MG Tablet PO (11:26)
--- NOTE | 2020-09-11 11:33 | NURSING ---
pt repositioned to LT side after incont care, lots of perimass drng in attends, with some urine. abdomen still distended awaiting Dr Wolff arrival for mulligan insertion since unsuccessful x2 attempts by staff. oxyir given for pain 09/17 periarea. call light in reach.
--- NOTE | 2020-09-11 12:34 | CON.PCM_ITS ---
Assessment & Plan Assessment/Plan (1) Urinary retention: PLAN: After obtaining consent to the suprapubic tube, the patient was given pain medication. Her abdomen in the suprapubic region was cleansed with Betadine. An area of the skin approximately 2 fingerbreadths superior to the pubic bone was selected for placement of the suprapubic tube. The area was infiltrated with 1% lidocaine and a 1 cm incision was made with a knife. The suprapubic catheter kit with trocar and 12 Divehi Mulligan catheter was used to place the suprapubic tube. Immediate release of urine was obtained. The catheter was inserted into the urinary bladder and the balloon was inflated with 10 cc. The trocar and obturator were removed and the catheter was connected to a Mulligan bag. Dressing was applied to the incision site. The patient's bladder drained and her distention subsided. Please call with questions, issues or problems. HPI Consult Data Date of Consult: 09/11/20 HPI Narrative HPI Narrative: TORSTEN SAEZ, is a 84 F who presents with end stages of life, vulvar cancer. In acute urinary retention, nursing staff unable to place mulligan catheter due to mass. Patient is being transferred to inpatient hospice. I attempted to place a urethral Mulligan catheter, due to the mass I was unable to do so, the patient was very uncomfortable with a distended bladder. Bladder scan greater than 1 L. Patient's family at bedside and patient agreed to proceed with suprapubic tube insertion at bedside. Informed consent was obtained. [facility] Medical History (Updated 09/11/20 @ 23:[address] Codie Wolff MD) COPD (chronic obstructive pulmonary disease) Former tobacco use GERD (gastroesophageal reflux disease) HLD (hyperlipidemia) Hypertension Urinary retention Allergy/AdvReac Type Severity Reaction Status Date / Time atorvastatin calcium AdvReac Nausea Verified 08/25/20 17:11 [From Lipitor] erythromycin lactobionate AdvReac Nausea Verified 08/25/20 13:36 [From Erythrocin] rosuvastatin calcium AdvReac Nausea Verified 08/25/20 17:11 [From Crestor] Surgical History S/P cholecystectomy S/P tonsillectomy and adenoidectomy Social History household members: family Smoking Status: Former smoker how long ago did patient quit smoking: Patient quit 40 years ago, 1/2 ppd since teenager until quit. alcohol intake: never substance use type: does not use ROS ROS Narrative Patient is actively on hospice. She is uncomfortable with distended bladder. Lying quietly in the bed, not very conversational. Physical Exam Const General Appearance: cooperative HEENT normocephalic and head/scalp atraumatic Neck supple General: trachea midline Lymph Lymphatic: no lymphedema noted Chest inspection of chest normal Chest: symmetrical chest wall rise Resp normal respiratory effort, normal air movement, no retractions and no use of accessory muscles Cardio regular rate GI soft to palpation GI Narrative: Palpably distended and tender bladder Narrative: Large fungating vulvar mass significantly disrupting the genital anatomy Skin no jaundice, no petechiae and no mottling Medical Records Data Medical Nutrition Assessment Dietitian: Nutrition Therapy Diagnosis Start: 09/04/20 12:05 Freq: Status: Active Protocol: Document 09/04/20 12:05 SHADI (Rec: 09/04/20 12:05 [facility] [id number]) Nutrition Malnutrition Evidence of Malnutrition Exists No Clinical Problem Altered Nutrient-Related Laboratory Values Etiology related to anemia Signs/Symptoms as evidenced by Hgb 8.2 and Hct 25.9 and on iron supplement. 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 and fat/ muscle loss (temporal/orbital regions, muscle loss in arms) Status Active Problem Recommendation Dietitian Recommendations/Changes Will continue liberal regular diet w/ oral nutrition supplements Will have meat cut into bite size pieces per res request Lab / Micro Data Result Diagrams: 09/11/20 05:15 09/11/20 05:15 Labs: Laboratory Results - last 24 hr 09/11/20 05:15: WBC 21.8 H, RBC 2.93 L, Hgb 8.0 L, Hct 25.6 L, MCV 87.4, MCH 27.3, MCHC 31.3 L, RDW Std Deviation 46.7 H, RDW Coeff of Trey 14.5, Plt Count 388, MPV 8.4, Immature Gran % (Auto) 0.600, Neut % (Auto) 90.0 H, Lymph % (Auto) 2.8 L, Phillips % (Auto) 5.2, Eos % (Auto) 1.3, Baso % (Auto) 0.1, Absolute Neuts (auto) 19.6 H, Absolute Lymphs (auto) 0.60 L, Nucleated RBC % 0 09/11/20 05:15: Sodium 128 L, Potassium 6.1 H*, Chloride 92 L, Carbon Dioxide 29.0, Anion Gap 7, BUN 86 H, Creatinine 3.62 H, Estim Creat Clear Calc 9.99, Est GFR (MDRD) Af Amer 15 L, Est GFR (MDRD) Non-Af 13 L, BUN/Creatinine Ratio 23.8 H , Glucose 96, Calcium 11.4 H
--- NOTE | 2020-09-11 13:06 | NURSING ---
Dr Wolff able to insert Suprapubic 12 fr, unsuccessful with mulligan insertion. pt kayley clear dark yellow urine, split gauze applied around site, secured with tape. daughters updated on all and verbalized much appreciation with care. PHOTOGRAPHIC REPRODUCTION TECHNICIAN calling for transport to hospice inpt. unit
[2020-09-11] MEDS: Lidocaine 1% (20 ml mdv) 20 ML Vial SC (13:08)
--- NOTE | 2020-09-11 13:23 | CASEMGMT ---
Social Work Ricardo Wei RN pt is now ready for discharge to I[facility]. Transportation arranged with [facility] for 2:30 citrus picker by cot. [facility] notified of discharge time. Pt family and nursing made aware of transportation time. Referral to [facility] cancelled. [facility]
--- NOTE | 2020-09-11 14:00 | PCM.DC.SUM ---
Providers Date of Admission: 08/27/20 Primary Care Physician: Dr. Tavon López MD Consultations 08/29/20 02:33 Consult: Onc/Wound/wood type cutter Routine Comment: Reason for Consult:: vulval mass with what appears to have thick yellow drainage 09/11/20 12:35 Consult: Urology Routine Consulting Provider: Codie Wolff Reason for Consult: RETENTION EMERGENT Consult: No MD Notified: Yes Date Notified: 09/11/20 Time Notified: 12:35 Method of Notification: 09 Reason For Visit: VULVAL MASS Diagnosis Discharge Diagnosis (1) Debility: Status: Acute Code(s): R53.81 - Other malaise (2) Vulvar mass: Status: Chronic Code(s): N90.89 - Other specified noninflammatory disorders of vulva and perineum (3) Chronic renal failure, stage 3 (moderate): Status: Chronic Code(s): N18.3 - Chronic kidney disease, stage 3 (moderate) Qualifiers: Chronic kidney disease stage 3 subtype: stage 3a (GFR 45-59) Qualified Code(s): N18.31 - Chronic kidney disease, stage 3a (4) Primary vulvar squamous cell carcinoma: Status: Acute Code(s): C51.9 - Malignant neoplasm of vulva, unspecified (5) Hypophosphatemia: Status: Acute Code(s): E83.39 - Other disorders of phosphorus metabolism (6) Hypomagnesemia: Status: Acute Code(s): E83.42 - Hypomagnesemia (7) Urinary incontinence: Status: Acute Code(s): R32 - Unspecified urinary incontinence Qualifiers: Urinary Incontinence type: functional incontinence Qualified Code(s): R39.81 - Functional urinary incontinence (8) Stool incontinence: Status: Acute Code(s): R15.9 - Full incontinence of feces Qualifiers: Fecal incontinence type: unspecified Qualified Code(s): R15.9 - Full incontinence of feces (9) Chronic obstructive pulmonary disease: Status: Chronic Code(s): J44.9 - Chronic obstructive pulmonary disease, unspecified Qualifiers: COPD type: unspecified COPD Qualified Code(s): J44.9 - Chronic obstructive pulmonary disease, unspecified (10) Gastroesophageal reflux disease: Status: Acute Code(s): K21.9 - Gastro-esophageal reflux disease without esophagitis Qualifiers: Esophagitis presence: without esophagitis Qualified Code(s): K21.9 - Gastro-esophageal reflux disease without esophagitis (11) Hypertension: Status: Chronic Code(s): I10 - Essential (primary) hypertension Qualifiers: Hypertension type: unspecified Qualified Code(s): I10 - Essential (primary) hypertension (12) Hyperlipidemia: Status: Acute Code(s): E78.5 - Hyperlipidemia, unspecified Qualifiers: Hyperlipidemia type: unspecified Qualified Code(s): E78.5 - Hyperlipidemia, unspecified Hospital Course Operations None Procedures - (Suprapubic catheter.) Summary of Care Provided Minutes Spent on Discharge: 35 Hospital Course: 84 year old female with below past medical history hospitalized for weakness secondary to metastatic squamous cell cancer of vulva, complicated by hypophosphatemia, hypomagnesemia, admitted to TCU with debility, here for rehabilitation, strengthening, prior to discharge home with family, and hospice. 09/11/2020 Resident declined, acute kidney injury secondary to obstruction from vulvar cancer, Dr. Wolff placed SP catheter to drain bladder. 09/11/2020 Discharge to inpatient hospice facility for back pain, shortness of breath. Physical Exam Const alert and oriented x3 General Appearance: cooperative HEENT normocephalic Eyes PERRL and EOMs intact bilaterally Neck supple, no JVD and no carotid bruits Resp normal respiratory effort, normal air movement and clear to auscultation bilaterally Cardio regular rate and regular rhythm GI normal to inspection, nondistended, normoactive bowel sounds, non-tender and non-distended Extremity normal capillary refill General Extremity: Negative for edema Skin no rashes or lesions noted General Skin Exam: no breakdown Psych affect normal Appearance: appropriate Medical Records Data Medical Nutrition Assessment Dietitian: Nutrition Therapy Diagnosis Start: 09/04/20 12:05 Freq: Status: Active Protocol: Document 09/04/20 12:05 SHADI (Rec: 09/04/20 12:05 SHADI [id number]) Nutrition Malnutrition Evidence of Malnutrition Exists No Clinical Problem Altered Nutrient-Related Laboratory Values Etiology related to anemia Signs/Symptoms as evidenced by Hgb 8.2 and Hct 25.9 and on iron supplement. 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 and fat/ muscle loss (temporal/orbital regions, muscle loss in arms) Status Active Problem Recommendation Dietitian Recommendations/Changes Will continue liberal regular diet w/ oral nutrition supplements Will have meat cut into bite size pieces per res request Weight / BMI Weight Weight: 62.006 kg Body Mass Index (BMI) 22.5 ABG / Lab / Microbiology Data Result Diagrams: 09/11/20 05:15 09/11/20 05:15 Laboratory: Laboratory Results - last 24 hr 09/11/20 05:15: WBC 21.8 H, RBC 2.93 L, Hgb 8.0 L, Hct 25.6 L, MCV 87.4, MCH 27.3, MCHC 31.3 L, RDW Std Deviation 46.7 H, RDW Coeff of Trey 14.5, Plt Count 388, MPV 8.4, Immature Gran % (Auto) 0.600, Neut % (Auto) 90.0 H, Lymph % (Auto) 2.8 L, [place] % (Auto) 5.2, Eos % (Auto) 1.3, Baso % (Auto) 0.1, Absolute Neuts (auto) 19.6 H, Absolute Lymphs (auto) 0.60 L, Nucleated RBC % 0 09/11/20 05:15: Sodium 128 L, Potassium 6.1 H*, Chloride 92 L, Carbon Dioxide 29.0, Anion Gap 7, BUN 86 H, Creatinine 3.62 H, Estim Creat Clear Calc 9.99, Est GFR (MDRD) Af Amer 15 L, Est GFR (MDRD) Non-Af 13 L, BUN/Creatinine Ratio 23.8 H, Glucose 96, Calcium 11.4 H D/C Instructions Discharge Diet: No restrictions Discharge Activity: Return to Normal Activity Weight Bearing Status: Weight bearing as tolerated Additional Instructions: 09/11/2020 Discharge to inpatient hospice facility for back pain, shortness of breath. Please Follow Up With: Tavon López MD When: As needed. Meaningful Use Info Meaningful Use Diagnoses (Choose all that apply): None applicable Discharge Plan Admission Admit Date/Time: 08/27/20 13:40 Primary Reason for Your Visit: Debility. Attending Provider: John William Chi Primary Care Provider: Tavon López Consulting Providers: Codie Wolff Instructions Additional Instructions / Restrictions: 09/11/2020 Discharge to inpatient hospice facility for back pain, shortness of breath. Discharge Orders/Prescriptions Prescriptions: Discontinued labetalol 200 MG tablet 300 mg PO BID RF: 0 amlodipine 5 MG tablet 10 mg PO DAILY@1700 RF: 0 esomeprazole magnesium [Nexium] 40 MG capsule 40 mg PO DAILY PRN PRN (Reason: stomach) RF: 0 menthol-zinc oxide [Calmoseptine] 0.44-20.6 % ointment 1 applic topical TID RF: 0 Ensure Enlive 0.08 gram-1.5 kcal/mL liquid 120 ml PO 4X/DAY RF: 0 Referrals / Follow Up: Tavon López MD [Primary Care Provider] - Disposition Disposition (needs filled in before D/C Order can be placed): Hospice in Medical Facility
--- NOTE | 2020-09-11 14:00 | NURSING ---
PT RESTING IN BED, EYES CLOSED, RESP EVEN AND UNLABORED. NO DISTRESS NOTED. EMPTIED 650CC TEA COLORED URINE FROM S/P CATH. DAUGHTERS AT BEDSIDE ASLEEP WELL.
[2020-09-11 14:11] VITALS: BP 116/45; PULSE 98; RESP 17; TEMP 36.5; O2SAT 91
--- NOTE | 2020-09-11 14:25 | NURSING ---
REPORT CALLED TO HOSPICE, TRANSPORT WILL BE PICKING PT UP AT 1530 INSTEAD OF 1430
== END 2020-09-11 15:47 | disposition hospice, inpatient (51) | DRG 746 ==
PROVIDERS: Admitting Provider Family Medicine Geriatric Medicine; PCP Family Medicine; Visit Provider Family Medicine Geriatric Medicine
DX: C51.9 Malignant neoplasm of vulva, unspecified (principal); C79.9 Secondary malignant neoplasm of unspecified site; E78.5 Hyperlipidemia, unspecified; K21.9 Gastro-esophageal reflux disease without esophagitis; J44.9 Chronic obstructive pulmonary disease, unspecified; I44.0 Atrioventricular block, first degree; R32 Unspecified urinary incontinence; R15.9 Full incontinence of feces; I12.9 Hypertensive chronic kidney disease with stage 1 through stage 4 chronic kidney disease, or unspecified chronic kidney disease; N18.31 Chronic kidney disease, stage 3a; Z87.891 Personal history of nicotine dependence; Z79.899 Other long term (current) drug therapy
CPT/HCPCS: 36415; 71046; 80048; 85014; 85018; 85025; 97110; 97116; 97150; 97162; 97166; 97530; 97535; 97802